=== PATIENT | female | born 1965 | race Caucasian/White ===

== ENCOUNTER → 2024-06-10 | Outpatient (CLI) | payer BC, SELFPAY ==
--- NOTE | 2024-06-10 | XR_ITS ---
Examination: PA lateral chest 2 views TECHNIQUE: Upright PA lateral chest 2 views Exam date and time: June 10, 2024 1216 hours INDICATIONS: Shortness of breath chronic FINDINGS: Normal heart size Mild hyperexpansion No pneumonia or pulmonary edema IMPRESSION: Mild hyperexpansion
[2024-06-10 13:14] LABS: Basophils # (Auto) 0.1 Thou/mm3 (0.0-0.2); Basophils % (Auto) 1 % (0-2.5); Eosinophils # (Auto) 0.3 Thou/mm3 (0.0-0.5); Eosinophils % (Auto) 4 % (0-10); Hematocrit 45.5 % (36.0-46.0); Hemoglobin 15.9 g/dL (12.0-16.0); Immature Granulocytes % (Auto) 1 % (0-0); Immature Granulocytes Auto 0.04 Thou/mm3 (0.00-0.00); Lymphocytes # (Auto) 2.9 Thou/mm3 (1.0-4.8); Lymphocytes % (Auto) 35 % (10-50); Mean Corpuscular HGB Conc 34.9 g/dl (31.0-37.0); Mean Corpuscular Hemoglobin 33.8 pg (25.0-35.0); Mean Corpuscular Volume 97 fL (80-100); Monocytes # (Auto) 0.6 Thou/mm3 (0.0-0.8); Monocytes % (Auto) 7 % (0-12); Neutrophils # (Auto) 4.4 Thou/mm3 (1.8-7.7); Neutrophils % (Auto) 53 % (37-80); Nucleated Red Blood Cell % 0 /100 WBC (0); Platelet Count 322 Thou/mm3 (140-440); RDW Standard Deviation 41.6 fL (36.4-46.3); Red Blood Count 4.71 Miln/mm3 (4.00-5.20); White Blood Count 8.3 Thou/mm3 (3.6-11.0)
[2024-06-10 13:28] LABS: Bacteria,Urine 1+; Bilirubin,Urine Negative (Negative); Blood,Urine Negative (Negative); Clarity,Urine Clear (Clear/Hazy); Color,Urine Lt-Yellow (Lt Yel-Yel); Glucose, Urine Negative (Negative); Ketones,Urine Negative (Negative); Leukocyte Esterase,Urine Positive (Negative); Nitrite,Urine Negative (Negative); Protein,Urine Negative (Neg - Trace); RBC,Urine 2 /hpf (0-3); Specific Gravity,Urine 1.009 (1.001-1.035); Squamous Epithelial Cell,Urine 1 /hpf (0-5); Urobilinogen,Urine Negative mg/dL (0.0-1.0); WBC,Urine 23 /hpf (0-5)
[2024-06-10 13:31] LABS: Collection Type, Urine Clean Catch
[2024-06-10 13:36] LABS: Vitamin D 25 Hydroxy Total 23.3 ng/mL (7.3-40.2)
[2024-06-10 13:44] LABS: Alanine Aminotransferase 20 U/L (10-49); Albumin, Serum 4.7 gm/dL (3.5-5.0); Albumin/Globulin Ratio 1.9 (1.2-2.2); Alkaline Phosphatase 108 U/L (46-116); Anion Gap 4 (7-16); BUN/Creatinine Ratio 16 Ratio (12-20); Bilirubin,Total 0.4 mg/dL (0.3-1.2); Blood Urea Nitrogen 13 mg/dL (9-23); Calcium 10.1 mg/dL (8.3-10.6); Calcium (Corrected) 10.1 mg/dL (8.5-10.1); Carbon Dioxide 28.2 mMol/L (20.0-31.0); Chloride 104 mMol/L (98-107); Cholesterol 216 mg/dL (132-200); Creatinine (Component) 0.8 mg/dL (0.6-1.3); Globulin 2.5 gm/dL (2.3-3.5); Glucose 115 mg/dL (74-106); HDL Cholesterol 54 mg/dL (40-60); LDL Cholesterol,Calculated 98 mg/dL (0-130); Osmolality,Calculated 273 (275-295); Potassium 4.3 mMol/L (3.4-5.1); Sodium 136 mMol/L (136-145); Thyroid Stimulating Hormone 1.98 uIU/mL (0.55-4.78); Total Protein 7.2 gm/dL (5.7-8.2); Triglycerides 319 mg/dL (30-150); eGFR > 60 See Note
[2024-06-10 13:51] LABS: Aspartate Amino Transferase < 8 U/L (0-34)
== END | disposition home or self-care (01) ==
LOC: CDIM 11:47 → COPL 12:42
PROVIDERS: PCP Family Medicine; Referring Provider Family Medicine; Visit Provider Radiology Diagnostic Radiology
DX: J98.4 Other disorders of lung (principal); Z00.00 Encounter for general adult medical examination without abnormal findings; Z13.0 Encounter for screening for diseases of the blood and blood-forming organs and certain disorders involving the immune mechanism; Z13.29 Encounter for screening for other suspected endocrine disorder; Z13.21 Encounter for screening for nutritional disorder; Z13.220 Encounter for screening for lipoid disorders; Z13.1 Encounter for screening for diabetes mellitus; Z83.3 Family history of diabetes mellitus
CPT/HCPCS: 36415; 71046; 80053; 80061; 81001; 82306; 84443; 85025; 87077; 87086; 87186

== ENCOUNTER → 2024-06-18 | Outpatient (CLI) | payer BC, SELFPAY ==
--- NOTE | 2024-06-18 07:15 | XR_ITS ---
Examination: Ultrasound abdominal aorta Exam date and time: June 18, 2024 0711 hours INDICATIONS: Smoking history 20 years TECHNIQUE AND FINDINGS: Multiple axial images of the abdominal aorta Transverse dimension proximal abdominal aorta 2.1 x 2.0 cm, mid aorta 1.5 x 1.5 cm, distal aorta 1.3 x 1.3 cm, right iliac artery 0.7 x 5.9 cm left iliac artery 0.7 x 0.7 cm IMPRESSION: Negative for abdominal aortic aneurysm
== END | disposition home or self-care (01) ==
LOC: CDIM 07:03
PROVIDERS: PCP Family Medicine; Referring Provider Family Medicine; Visit Provider Family Medicine
DX: Z87.891 Personal history of nicotine dependence (principal)
CPT/HCPCS: 76770

== ENCOUNTER → 2024-07-15 | Outpatient (CLI) | payer BC, SELFPAY ==
--- NOTE | 2024-07-15 14:44 | EKG_ITS ---
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
[2024-07-15 15:29] LABS: Basophils # (Auto) 0.1 Thou/mm3 (0.0-0.2); Basophils % (Auto) 1 % (0-2.5); Eosinophils # (Auto) 0.2 Thou/mm3 (0.0-0.5); Eosinophils % (Auto) 2 % (0-10); Hematocrit 45.7 % (36.0-46.0); Hemoglobin 15.5 g/dL (12.0-16.0); Immature Granulocytes % (Auto) 0 % (0-0); Immature Granulocytes Auto 0.05 Thou/mm3 (0.00-0.00); Lymphocytes # (Auto) 4.5 Thou/mm3 (1.0-4.8); Lymphocytes % (Auto) 35 % (10-50); Mean Corpuscular HGB Conc 33.9 g/dl (31.0-37.0); Mean Corpuscular Hemoglobin 33.1 pg (25.0-35.0); Mean Corpuscular Volume 98 fL (80-100); Monocytes # (Auto) 0.8 Thou/mm3 (0.0-0.8); Monocytes % (Auto) 6 % (0-12); Neutrophils # (Auto) 7.3 Thou/mm3 (1.8-7.7); Neutrophils % (Auto) 56 % (37-80); Nucleated Red Blood Cell % 0 /100 WBC (0); Platelet Count 369 Thou/mm3 (140-440); RDW Standard Deviation 42.1 fL (36.4-46.3); Red Blood Count 4.68 Miln/mm3 (4.00-5.20)
[2024-07-15 15:56] LABS: Alanine Aminotransferase 16 U/L (10-49); Albumin, Serum 5.1 gm/dL (3.5-5.0); Alkaline Phosphatase 91 U/L (46-116); Anion Gap 7 (7-16); Aspartate Amino Transferase 18 U/L (0-34); BUN/Creatinine Ratio 22 Ratio (12-20); Bilirubin,Total 0.3 mg/dL (0.3-1.2); Blood Urea Nitrogen 22 mg/dL (9-23); Carbon Dioxide 28.8 mMol/L (20.0-31.0); Chloride 102 mMol/L (98-107); Globulin 2.6 gm/dL (2.3-3.5); Glucose 110 mg/dL (74-106); Osmolality,Calculated 279 (275-295); Potassium 4.4 mMol/L (3.4-5.1); Sodium 138 mMol/L (136-145); Total Protein 7.7 gm/dL (5.7-8.2); eGFR > 60 See Note
== END | disposition home or self-care (01) ==
PROVIDERS: PCP Family Medicine; Referring Provider Orthopaedic Surgery; Visit Provider Orthopaedic Surgery
DX: R07.9 Chest pain, unspecified (principal); R00.2 Palpitations; Z00.00 Encounter for general adult medical examination without abnormal findings; Z13.29 Encounter for screening for other suspected endocrine disorder
CPT/HCPCS: 36415; 80053; 85025; 93005

== ENCOUNTER → 2024-08-13 | Outpatient (CLI) | payer BC, SELFPAY ==
--- NOTE | 2024-08-13 13:21 | XR_ITS ---
Examination: Knee, left , 3 views Technique: Knee AP, lateral, axial 3 views Date and time of exam: August 13, 2024 1331 hours INDICATIONS: Intermittent swelling and pain involving the knee 3 months. FINDINGS: No fracture or dislocation Small knee effusion Minimal osteoarthritis IMPRESSION: Minimal osteoarthritis
--- NOTE | 2024-08-13 13:21 | XR_ITS ---
Examination: Bilateral knees, standing AP single view Technique: Standing AP bilateral knees, standing AP single view Exam date and time: August 13, 2024 1331 hours INDICATIONS: Intermittent left knee swelling and pain 2 years FINDINGS: Moderate osteopenia Total right knee arthroplasty. Satisfactory alignment No loosening of the prosthetic components Mild to moderate narrowing medial joint space left knee No left knee fracture or dislocation IMPRESSION: Mild to moderate narrowing medial joint space left knee
== END | disposition home or self-care (01) ==
PROVIDERS: PCP Orthopaedic Surgery; Referring Provider Orthopaedic Surgery; Visit Provider Orthopaedic Surgery
DX: M17.12 Unilateral primary osteoarthritis, left knee (principal); M25.862 Other specified joint disorders, left knee; M25.861 Other specified joint disorders, right knee
CPT/HCPCS: 73560; 73562; 73564; 73565

== ENCOUNTER → 2024-09-11 | Outpatient (CLI) | payer BC, SELFPAY ==
[2024-09-11 13:23] LABS: Basophils # (Auto) 0.1 Thou/mm3 (0.0-0.2); Basophils % (Auto) 1 % (0-2.5); Eosinophils # (Auto) 0.3 Thou/mm3 (0.0-0.5); Eosinophils % (Auto) 3 % (0-10); Hematocrit 44.3 % (36.0-46.0); Hemoglobin 15.1 g/dL (12.0-16.0); Immature Granulocytes % (Auto) 0 % (0-0); Immature Granulocytes Auto 0.03 Thou/mm3 (0.00-0.00); Lymphocytes # (Auto) 2.9 Thou/mm3 (1.0-4.8); Lymphocytes % (Auto) 37 % (10-50); Mean Corpuscular HGB Conc 34.1 g/dl (31.0-37.0); Mean Corpuscular Hemoglobin 32.8 pg (25.0-35.0); Mean Corpuscular Volume 96 fL (80-100); Monocytes # (Auto) 0.5 Thou/mm3 (0.0-0.8); Monocytes % (Auto) 6 % (0-12); Neutrophils # (Auto) 4.2 Thou/mm3 (1.8-7.7); Neutrophils % (Auto) 53 % (37-80); Nucleated Red Blood Cell % 0 /100 WBC (0); Platelet Count 294 Thou/mm3 (140-440); RDW Standard Deviation 42.7 fL (36.4-46.3)
[2024-09-11 13:45] LABS: Anion Gap 5 (7-16); BUN/Creatinine Ratio 15 Ratio (12-20); Blood Urea Nitrogen 12 mg/dL (9-23); Calcium 9.3 mg/dL (8.3-10.6); Carbon Dioxide 30.2 mMol/L (20.0-31.0); Chloride 106 mMol/L (98-107); Creatinine (Component) 0.8 mg/dL (0.6-1.3); Glucose 137 mg/dL (74-106); Osmolality,Calculated 282 (275-295); Potassium 4.4 mMol/L (3.4-5.1); Sodium 141 mMol/L (136-145); eGFR > 60 See Note
== END | disposition home or self-care (01) ==
LOC: COPL 12:29
PROVIDERS: PCP Family Medicine; Referring Provider Surgery Plastic and Reconstructive Surgery; Visit Provider Surgery Plastic and Reconstructive Surgery
DX: Z01.818 Encounter for other preprocedural examination (principal); G56.22 Lesion of ulnar nerve, left upper limb
CPT/HCPCS: 36415; 80048; 85025

== ENCOUNTER → 2024-09-15 | Outpatient (BNVA) | payer BC, SELFPAY | END | disposition home or self-care (01) | PROVIDERS: PCP Family Medicine; Referring Provider Family Medicine; Visit Provider Urology | DX: Z09 Encounter for follow-up examination after completed treatment for conditions other than malignant neoplasm (principal); Z87.440 Personal history of urinary (tract) infections; E66.9 Obesity, unspecified; Z68.29 Body mass index [BMI] 29.0-29.9, adult | CPT/HCPCS: 81003; 99212; G0463 ==

== ENCOUNTER → 2024-10-12 | Outpatient (CLI) | payer BC, SELFPAY ==
[2024-10-12 17:45] LABS: Alanine Aminotransferase 12 U/L (10-49); Albumin, Serum 4.1 gm/dL (3.5-5.0); Albumin/Globulin Ratio 1.8 (1.2-2.2); Alkaline Phosphatase 89 U/L (46-116); Anion Gap 7 (7-16); Aspartate Amino Transferase 14 U/L (0-34); BUN/Creatinine Ratio 16 Ratio (12-20); Bilirubin,Total 0.3 mg/dL (0.3-1.2); Blood Urea Nitrogen 14 mg/dL (9-23); Calcium 9.2 mg/dL (8.3-10.6); Calcium (Corrected) 9.2 mg/dL (8.5-10.1); Carbon Dioxide 27.8 mMol/L (20.0-31.0); Chloride 106 mMol/L (98-107); Creatinine (Component) 0.9 mg/dL (0.6-1.3); Globulin 2.3 gm/dL (2.3-3.5); Glucose 106 mg/dL (74-106); Osmolality,Calculated 281 (275-295); Potassium 4.1 mMol/L (3.4-5.1); Sodium 141 mMol/L (136-145); Total Protein 6.4 gm/dL (5.7-8.2); eGFR > 60 See Note
== END | disposition home or self-care (01) ==
LOC: COPL 16:26
PROVIDERS: PCP Family Medicine; Referring Provider Family Medicine; Visit Provider Family Medicine
DX: Z00.00 Encounter for general adult medical examination without abnormal findings (principal)
CPT/HCPCS: 36415; 80053

== ENCOUNTER → 2024-10-13 | Outpatient (CLI) | payer BC, SELFPAY ==
--- NOTE | 2024-10-13 11:00 | XR_ITS ---
Examination: CT soft tissue neck, with intravenous contrast. CT soft tissue neck without intravenous contrast 2-D coronal reconstructions. 2-D sagittal reconstructions. Date and time of exam :October 13, 2024 1057 hours INDICATIONS: Patient states left neck lump 5 years. CTDI: vol (mGy):25.8 DLP: (mGycm):784 Technique: 1.25 mm axial sections of the neck of the obtained. Pre and post intravenous administration 50 cc Isovue-370 Coronal and sagittal reconstructions have been obtained. Intravenous contrast administered 50 cc Isovue-370. Low dose protocols were performed. One or more of the following dose reduction techniques were used; automated exposure control, adjustment of the mA and/or KV according to patient size, use of iterative reconstruction technique. Findings: Symmetrical nasopharynx oropharynx Carotid triangle lymphadenopathy, on the right side 8 mm on the left side 7 mm The larynx appears normal Suspicious for left retroclavicular lymph node, axial image 61, measuring 19 mm Normal epiglottis No prevertebral soft tissue prominence IMPRESSION: Recommend ultrasound soft tissue neck follow-up including in the retroclavicular region to assess the lymphadenopathy
== END | disposition home or self-care (01) ==
PROVIDERS: Referring Provider Family Medicine; Visit Provider Family Medicine
DX: R59.0 Localized enlarged lymph nodes (principal)
CPT/HCPCS: 70492; A4649; Q9967

== ENCOUNTER → 2024-12-28 | Outpatient (CLI) | payer BC, SELFPAY ==
--- NOTE | 2024-12-28 14:00 | XR_ITS ---
Examination: Ultrasound soft tissue left clavicle TECHNIQUE: Grayscale sonographic images soft tissue left clavicle Date and time: December 28, 2024 1405 hours INDICATIONS: Palpable lump anterior left clavicle beginning 2011, ultrasound soft tissue neck October 13, 2024 carotid triangle lymphadenopathy, suspicious for 19 mm left retroclavicular lymph node FINDINGS: Multiple small lymph nodes anterior to the left clavicle, the largest 16 x 9 mm IMPRESSION: Lymphadenopathy adjacent to the left clavicle, consider repeat CT soft tissue neck in 3 months
== END | disposition home or self-care (01) ==
PROVIDERS: PCP Family Medicine; Referring Provider Family Medicine; Visit Provider Family Medicine
DX: R59.0 Localized enlarged lymph nodes (principal)
CPT/HCPCS: 76536

== ENCOUNTER 2025-04-09 00:35 | Emergency (ER) | payer BC, SELFPAY ==
[2025-04-09] VITALS (9 sets, daily range): BP systolic 131–151; BP diastolic 99–107; PULSE 90–128; RESP 15–95; TEMP 37.1; O2SAT 96–100; BMI 28.9
--- NOTE | 2025-04-09 00:56 | EKG_ITS ---
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: : 1965 Requested By: Jose Roberto De León Order Number: [id number] Reading MD: Jose Roberto De León Measurements Intervals [place] Rate: 103 P: [place]: QRS: 262 QRSD: 97 T: 76 QT: 329 QTc: 433 Interpretive Statements ATRIAL FIBRILLATION WITH RAPID VENTRICULAR RESPONSE INCOMPLETE RIGHT BUNDLE BRANCH BLOCK [90+ ms QRS DURATION, TERMINAL R IN V1/V2, 40+ ms S IN I/aVL/V4/V5/V6] RIGHT VENTRICULAR HYPERTROPHY [SOME/ALL OF: PROMINENT R IN V1, LATE TRANSITION, RAD, TE, SSS] SEPTAL MYOCARDIAL INFARCTION , OF INDETERMINATE AGE [40+ ms Q WAVE IN V1/V2] Compared to ECG 07/15/2024 14:47:16 Atrial abnormality now present Right ventricular hypertrophy now present Myocardial infarct finding now present Sinus rhythm no longer present Indeterminate axis no longer present /store/S0/[id number]/ecg/[id number].pdf
--- NOTE | 2025-04-09 01:01 | XR_ITS ---
Examination: AP chest single view Technique: AP portable upright chest single view Date and time: April 09, 2025, 0114 hrs., Comparison June 10, 2024 Indications: Shortness of breath today, asthma attack Findings: Normal heart size No lobar pneumonia or pulmonary edema. Moderate osteopenia Impression: No pneumonia or pulmonary edema
[2025-04-09 01:19] LABS: Basophils # (Auto) 0.1 Thou/mm3 (0.0-0.2); Basophils % (Auto) 1 % (0-2.5); Eosinophils # (Auto) 0.3 Thou/mm3 (0.0-0.5); Eosinophils % (Auto) 2 % (0-10); Hematocrit 45.2 % (36.0-46.0); Hemoglobin 15.2 g/dL (12.0-16.0); Immature Granulocytes Auto 0.05 Thou/mm3 (0.00-0.00); Lymphocytes # (Auto) 4.5 Thou/mm3 (1.0-4.8); Lymphocytes % (Auto) 37 % (10-50); Mean Corpuscular HGB Conc 33.6 g/dl (31.0-37.0); Mean Corpuscular Hemoglobin 33.3 pg (25.0-35.0); Mean Corpuscular Volume 99 fL (80-100); Monocytes # (Auto) 0.8 Thou/mm3 (0.0-0.8); Monocytes % (Auto) 6 % (0-12); Neutrophils # (Auto) 6.4 Thou/mm3 (1.8-7.7); Neutrophils % (Auto) 53 % (37-80); Nucleated Red Blood Cell # 0.00 Thou/mm3 (0.00-0.00); Nucleated Red Blood Cell % 0 /100 WBC (0); Platelet Count 284 Thou/mm3 (140-440); RDW Standard Deviation 43.1 fL (36.4-46.3); Red Blood Count 4.56 Miln/mm3 (4.00-5.20); White Blood Count 12.0 Thou/mm3 (3.6-11.0)
[2025-04-09] MEDS: Magnesium Sulfate 2 GM Ivpb 2 GM/50 ML BAG IV (01:25)
[2025-04-09] MEDS: MethylPREDNISolone SOD SUCC 62.5 MG/ML 2ML VIAL 125 MG IV (01:25)
[2025-04-09] MEDS: SODIUM CHLORIDE 0.9% 500 ML 500 ML 999 ML IV (01:26)
[2025-04-09 01:40] LABS: B-Type Natriuretic Peptide < 20 pg/mL (0-100)
[2025-04-09 01:41] LABS: Alanine Aminotransferase 18 U/L (10-49); Albumin, Serum 4.4 gm/dL (3.4-4.8); Albumin/Globulin Ratio 2.2 (1.2-2.2); Alkaline Phosphatase 105 U/L (46-116); Anion Gap 7 (7-16); Aspartate Amino Transferase 17 U/L (0-34); BUN/Creatinine Ratio 11 Ratio (12-20); Bilirubin,Total < 0.2 mg/dL (0.3-1.2); Blood Urea Nitrogen 11 mg/dL (9-23); Calcium 9.7 mg/dL (8.3-10.6); Calcium (Corrected) 9.7 mg/dL (8.5-10.1); Carbon Dioxide 27.7 mMol/L (20.0-31.0); Chloride 108 mMol/L (98-107); Creatinine (Component) 1.0 mg/dL (0.6-1.3); Estimated Creatinine Clearance 59.9 mL/min (>60); Globulin 2.0 gm/dL (2.3-3.5); Glucose 120 mg/dL (74-106); Magnesium 1.9 mg/dL (1.6-2.6); Osmolality,Calculated 285 (275-295); Potassium 3.9 mMol/L (3.4-5.1); Sodium 143 mMol/L (136-145); Total Protein 6.4 gm/dL (5.7-8.2); Troponin I < 0.020 ng/mL (0.0-0.045); eGFR > 60 See Note
[2025-04-09 01:43] LABS: D-Dimer < 250 ng/mL (<600)
--- NOTE | 2025-04-09 01:46 | EDNOTE_ITS ---
ED Asthma RME/HPI General Chief Complaint: Shortness of Breath/Dyspnea Stated Complaint: SOB Time Seen by Provider: 04/09/25 00:56 Arrival date/time: 04/09/25 00:35 RME / HPI RME / HPI Narrative: DR. SORIANO MAIN ED EVALUATION: Patient with Hx advanced asthma on home nebulizer therapy presents with relatively sudden onset shortness of breath this evening of increasing intensity despite home nebulizer use. Patient found in moderate to severe respiratory distress by paramedics with O2 sats in the low to mid 80 percentile range. Administered serial nebulizer treatments en route with gradual improvement in O2 sats to low to mid 90 percentile. No LE pain swell no fever chills or productive cough. No chest pain but reported chest tightness?. PMH includes Asthma/COPD and Kidney Stones. SHx is noncontributory, but includes orthopedic history including the right knee. No allergies to medications reported. Social history includes cigarette smoking, but denies alcoholism or illicit drug abuse. Related Data Home Medications ?Medication ?Instructions ?Recorded ?Confirmed montelukast 10 mg tablet 10 mg PO HS #0 tabs 06/28/14 09/15/24 (Singulair) albuterol sulfate 0.63 mg/3 mL 0.63 mg inhalation BID PRN 03/26/19 09/15/24 solution for nebulization Shortness Of Breath fluticasone propionate 50 1 spray intranasal DAILY 02/1409/15/24 mcg/actuation nasal spray,suspension albuterol sulfate 90 mcg/actuation inh inhalation Q6HR PRN PRN 11/21/21 09/15/24 aerosol inhaler Shortness Of Breath Or [place] ing aspirin 81 mg tablet 81 mg PO QDAY 11/21/2109/15 atorvastatin 10 mg tablet 10 mg PO DAILY 11/21/2108/29 estradiol 1 mg tablet 2 mg PO DAILY 11/21/2109/15 fluticasone fur. 100 mcg-umeclid 1 inh inhalation [place] Y 11/21/21 09/15/24 62.5 mcg-vilant 25 mcg inhalat.powder (Trelegy Ellipta) oxycodone-acetaminophen 5 mg-325 1 tab PO BID PRN Pain 11/21/21 09/15/24 mg tablet estradiol 0.01% (0.1 mg/gram) 2 g vaginal DIRECTED 09/17/23 09/15/24 vaginal cream (Estrace) nitrofurantoin macrocrystal 100 mg 100 mg PO QDAY 08/3009/15/24 capsule Allergies Allergy/AdvReac Type Severity Reaction Status Date / Time No Known Allergies Allergy Verified 09/15/24 14:01 Review of Systems Review of Systems Systems Reviewed: All systems reviewed, normal except as documented Past Medical History Past Medical History CARDIAC: Positive Hypercholesterolemia RESPIRATORY: Positive Chronic Obstructive Pulmonary Disease (COPD), Asthma and Pneumonia GASTROINTESTINAL: Positive Gastroesophageal Reflux Disease (once in awhile) GENITOURINARY: Positive Genitourinary Disorders (self in out cath prn for urinary retention- once q3 days to prevent uti), Renal Disease (kidney stones 2018) and Kidney Stones (2019, currently has right kidney stone) REPRODUCTIVE: Positive Previous Pregnancies MUSCULOSKELETAL: Positive Musculoskeletal Disorders and Arthritis (right knee) PSYCHO/SOCIAL: Positive Anxiety OTHER HISTORY: Positive Hospitalization, Shingles, Falls (more than 6 mons ago) and Chicken Pox Family History FAMILY HISTORY: Positive Family Respiratory Disorders, Family Cardiac Disorders, Family Gastrointestinal Problems, Family Cancer and Family Surgery Surgical History SURGICAL: Positive Tonsillectomy and Hysterectomy Social History SMOKING STATUS: Current some day smoker ED Exam Narrative Physical exam: GEN. APPEARANCE: The patient is alert awake oriented X-3 in mild to moderate respiratory distress, lying down comfortably, does not look ill/toxic. Patient has good eye contact. Patient is cooperative. VITALS: All vitals were reviewed and the pulse ox is 96% on room air which is normal according to my interpretation. HEENT: Normocephalic, atraumatic. Pupils are equal and reactive. Oral mucosa is moist. Patent Nares NECK: Supple, nontender, no thyromegaly, no meningismus, no JVD, no step offs CHEST: Symmetrical, atraumatic, and with equal expansion , Nontender on palpati on no deformity and no crepitus. CARDIOVASCULAR: Heart regular rhythm no murmur or gallop rub or extra beats. LUNGS: Mild to moderate respiratory distress, utilizing accessory muscles. Diffusely scattered harsh wheezing noted. No rales. ABDOMEN: Soft, flat, nontender to palpation, no guarding or rebound tenderness. There are no abnormal masses palpated. Active and normal bowel sounds. EXTREMITIES: Nontender. No edema. No cyanosis. Patient is able to move all 4 extremities well, with full ROM and good CSM. SKIN: Warm and dry, no jaundice or rashes noted. MUSCULOSKELETAL: No lubar or midline bony tenderness. There is no CVA tenderness. No paraspinal muscle spasm or tenderness. NEURO: Patient is CASTILLO x 4, Cranial nerves II through XII grossly intact. There is no focal neurologic deficits noted. GCS is 15, PNS and [employer] appear grossly intact. PSYCHIATRIC: Patient is in normal mood and affect, cooperative, no SI or HI or hallucinations. Course Course Course Narrative: CXR was ordered for determining the etiology of shortness of breath. 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 Care 04/09/25 00:57 Active Continuous Pulse Oximetry NOW Care 04/09/25 00:56 Completed EKG (ED ONLY) *Do not use* NOW Care 04/09/25 00:57 Completed EKG (ED Only) Stat Exams 04/09/25 00:56 Draft XR chest 1V portable Stat Exams 04/09/25 01:01 Taken B-Type Natriuretic Peptide Stat Lab 04/09/25 01:12 Completed CBC Stat Lab 04/09/25 01:12 Completed Comprehensive Metabolic Panel Stat Lab 04/09/25 01:12 Completed D-Dimer Stat Lab 04/09/25 01:12 Completed Magnesium Stat Lab 04/09/25 01:12 Completed Troponin I Stat Lab 04/09/25 01:12 Completed Urinalysis, C/S if Indicated Stat Lab 04/09/25 01:03 Ordered ALBUTEROL RT 0.5ml [Proventil Rt 0.5ml] Med 04/09/25 00:56 Active 5 mg INH Q30M PRN Ipratropium [place] Rt Penny [Atrovent Rt Penny] Med 04/09/25 00:56 Pending 0.5 mg INH X1 ONE Ipratropium [place] Rt Penny [Atrovent Rt Penny] Med 04/09/25 00:56 Discontinued DOSE mg INH X1 ONE Magnesium Sulfate 2 GM Ivpb [Magnesium Sulfate Ivpb] Med 04/09/25 01:05 Active 2 gm in 50 ml IV X1 MethylPREDNISolone.* [SoluMEDROL Inj] Med 04/09/25 01:01 Discontinued 125 mg IV X1 ONE Sodium Chloride 0.9% 500 ml [Ns] 500 ml Med 04/09/25 00:56 Discontinued IV 999 mls/hr Sodium Chloride Rt Penny 0.9% [NS Rt Penny 0.9%] Med 04/09/25 00:56 Active 3 ml INH PRN PRN BiPAP / CPAP NOW RT 04/09/25 00:56 Active Oxygen Delivery NOW RT 04/09/25 00:56 Active Vital Signs Vital signs: Vital Signs Temperature 98.8 F 04/09/25 00:47 Pulse Rate 128 H 04/09/25 00:47 Respiratory Rate 20 04/09/25 00:47 Blood Pressure 151/107 H 04/09/25 00:47 Pulse Oximetry (%) 96 04/09/25 00:47 Oxygen Delivery Method Room Air 04/09/25 00:47 Asthma MDM Narrative MDM Narrative:: Scribe Attestation: Faustina Mckeon am scribing for and in the presence of Dr. Soriano. Provider Notation: Although this document has been carefully reviewed, there may still be some phonetic and other typographical errors. These errors are purely grammatical due to imperfections in the software program and should not be construed in any way to compromise the substance of the patient's medical care during this visit. Patient with Hx advanced asthma on home nebulizer therapy presents with relatively sudden onset shortness of breath this evening of increasing intensity despite home nebulizer use. Patient found in moderate to severe respiratory distress by paramedics with O2 sats in the low to mid 80 percentile range. Please see PE findings. Lab markers demonstrated marginally elevated white blood cell count of 12, with normal hemoglobin, no left shift or anemia. Serum chemistries demonstrate glucose mildly elevated at 120. UA equivocal for infection, though appears to be contaminated. CXR shows hyperexpansion of lung [place] without infiltrate. Patient placed on professional housing consultant, received serial nebulizer treatment in conjunction with IV steroids and magnesium infusion with slow gradual improvement. Imperical ABX administered. Hospitalist consulted to consider admission for COPD exacerbation. Patient data External records reviewed:: [facility] previous records (No recent ED records available for review.) and EMS form Clinical information provided by:: patient and EMS Social determinants that could affect healthcare access:: none Patient has the following chronic illnesses:: Hypercholesterolemia, Chronic Obstructive Pulmonary Disease (COPD), Asthma, Gastroesophageal Reflux Disease, Renal Disease, Kidney Stones, Arthritis, Anxiety How is presenting disease/condition affected by chronic disease/condition?: exacerbated by Evaluation data The following diagnostics were reviewed and interpreted by me:: lab results, radiology exam(s) and EKG tracing(s) Lab and/or radiology exams considered but not ordered:: None Interpretation Summary: RADIOLOGY Chest X-Ray: Pending official radiology report. Medications / Prescriptions Medications or Prescriptions considered but not ordered:: None Medication administrations:: Medication Administration History Albuterol (Albuterol Rt 2.5 Mg/0.5 Ml Nebu) 5 mg INH Q30M PRN PRN Reason: SHORTNESS OF BREATH Magnesium Sulfate (Magnesium Sulfate Ivpb) 2 gm in 50 mls @ 25 mls/hr IV X1 ONE Stop: 04/09/25 03:04 Last Admin: 04/09/25 01:25 Dose: 25 mls/hr Documented By: [email or web address] Ipratropium [place] (Ipratropium Rt 0.5 Mg/ 2.5 Ml Nebu) 0.5 mg INH X1 ONE Stop: 04/09/25 00:57 Sodium Chloride (Sodium Chloride Rt Penny 0.9% 3 Ml Nebu) 3 ml INH PRN PRN PRN Reason: SOLN Stop: 05/09/25 00:55 Discontinued Medications Sodium Chloride (Ns) 500 mls @ 999 mls/hr IV .Q31M ONE Stop: 04/09/25 01:26 Last Admin: 04/09/25 01:26 Dose: 999 mls/hr Documented By: [email or web address] Ipratropium [place] (Ipratropium Rt 0.5 Mg/ 2.5 Ml Nebu) mg INH X1 ONE Stop: 04/09/25 00:57 Methylprednisolone Sodium Succinate (Methylprednisolone Sod Succ 62.5 Mg/Ml 2ml Vial) 125 mg IV X1 ONE Stop: 04/09/25 01:02 Last Admin: 04/09/25 01:25 Dose: 125 mg Documented By: ERKHA Consultations Consultation(s) initiated? (list below): Yes Consultation #1 (Physician, Specialty, Details): Hospitalist made aware of the patient?s HPI, PMHx, lab and/or radiology results. Treatment plan was discussed. Will admit for further evaluation and management. Accepts patient for admission. Time: 03:21 Diagnosis Differential diagnosis asthma: Acute exacerbation, Status asthmaticus, Acute asthmatic bronchitis, PE, Pneumonia, COPD exacerbation, Pulmonary edema systolic, Pulmonary edema dystolic, ARDS and Pneumothorax Most likely diagnosis given after review of the tests above:: COPD exacerbation, Admission Indicated Admission indicated?: indicated Explain why admission is indicated or not indicated:: COPD exacerbation Admission Request Was there a request for admission?: Yes Admission Attestation Admission request attestation: Discussed case with [] from Hospitalist service regarding admission. Discussed patients ED course, exam findings, labs, and radiology results. The Hospitalist [agrees,declines] to accept the patient for admission. Disposition Plan Disposition Plan: Admit Critical Care Time Critical Care Time Critical Care Time: Yes Total Critical Care Time (min.): 40 Attestation: The high probability of sudden, clinically significant deterioration in the patient?s condition required the highest level of my preparedness to intervene urgently. The services I provided to this patient were to treat and/or prevent clinically significant deterioration. Services included the following: chart data review, reviewing nursing notes and/or old charts, documentation time, network systems consultant collab oration regarding findings and treatment options, medication orders and management, direct patient care, vital sign assessments and ordering, interpreting and reviewing diagnostic studies and lab tests. Aggregate critical care time includes only time during which I was engaged in work directly related to the patient?s care, as described above, whether at bedside or elsewhere in the Emergency Department. It did not include time spent performing other reported procedures or the services of residents, students, nurses or physician assistants. Discharge Plan Plan Patient Disposition: Admit Acute Care w/in Hospital Prescriptions/Referrals Prescriptions/Med Rec: No Action estradiol [Estrace] 0.01 % (0.1 mg/gram) cream 2 g vaginal DIRECTED Patient Comments: twice a week nitrofurantoin macrocrystal 100 mg capsule 100 mg PO QDAY Rx Instructions: must administer with a meal/food montelukast [Singulair] 10 MG tablet 10 mg PO HS Qty: 0 albuterol sulfate 0.63 mg/3 mL Solution For Nebulization 0.63 mg INHALATION BID PRN (Reason: Shortness Of Breath) fluticasone propionate 50 mcg/actuation spray,suspension 1 spray INTRANASAL DAILY Patient Comments: SHAKE LQ AND U 1 SPR IEN BID Rx Instructions: 1 spray each nose albuterol sulfate 90 mcg/actuation HFA aerosol inhaler INHALATION N2ENDGL PRN (Reason: Shortness Of Breath Or Wheezing) Patient Comments: INHALE 2 PUFFS BY MOUTH EVERY 6 HOURS NEEDED Trelegy Ellipta 100-62.5-25 mcg blister with device 1 inh INHALATION DAILY Patient Comments: INHALE 1 PUFF BY MOUTH DAILY aspirin 81 mg Tablet 81 mg PO QDAY atorvastatin 10 mg tablet 10 mg PO DAILY Patient Comments: TAKE ONE TABLET BY MOUTH EVERY DAY FOR CHOLESTEROL estradiol 1 mg tablet 2 mg PO DAILY oxycodone-acetaminophen 5-325 mg tablet 1 tab PO BID PRN (Reason: Pain) Rx Instructions: Hx right total knee replacement on 05/25/21 Referrals: No Primary/Family,Physician [Primary Care Provider] - In 1 week Problem List Clinical Impression: COPD exacerbation Patient/Caregiver Discharge Instructions Print Language: Hebrew Stand Alone Forms: Negin Award Info., Patient Portal Info Letter
[2025-04-09] MEDS: ALBUTEROL RT 2.5 MG/0.5 ML NEBU 5 MG INH (01:52)
[2025-04-09] MEDS: SODIUM CHLORIDE RT SOL 0.9% 3 ML NEBU INH (01:52)
[2025-04-09] MEDS: ALBUTEROL RT 2.5 MG/0.5 ML NEBU 10 MG (02:16)
[2025-04-09] MEDS: IPRATROPIUM RT 0.5 MG/ 2.5 ML NEBU 1 MG INH (02:18)
[2025-04-09 02:29] LABS: Collection Type, Urine Clean Catch
[2025-04-09 02:50] LABS: Bacteria,Urine 3+; Bilirubin,Urine Negative (Negative); Blood,Urine Trace (Negative); Clarity,Urine Clear (Clear/Hazy); Color,Urine Lt-Yellow (Lt Yel-Yel); Glucose, Urine Negative (Negative); Hyaline Casts,Urine < 1 /hpf (0-1); Ketones,Urine Negative (Negative); Leukocyte Esterase,Urine Negative (Negative); Nitrite,Urine Negative (Negative); PH,Urine 6.5 (5.0-7.0); Protein,Urine 1+ (Neg - Trace); RBC,Urine 9 /hpf (0-3); Specific Gravity,Urine 1.019 (1.001-1.035); Squamous Epithelial Cell,Urine 8 /hpf (0-5); Urobilinogen,Urine Negative mg/dL (0.0-1.0); WBC,Urine 1 /hpf (0-5)
[2025-04-09 02:52] LABS: Culture Indicated,Urine Yes
[2025-04-09] MEDS: cefTRIAXone/D5w 1gm IV premix 1 GM/50 ML BAG IV (05:09)
== END 2025-04-09 05:16 | disposition home or self-care (01) ==
PROVIDERS: Emergency Provider Emergency Medicine
DX: J44.1 Chronic obstructive pulmonary disease with (acute) exacerbation (principal); I48.91 Unspecified atrial fibrillation; I45.10 Unspecified right bundle-branch block; E78.00 Pure hypercholesterolemia, unspecified; D72.829 Elevated white blood cell count, unspecified; F17.210 Nicotine dependence, cigarettes, uncomplicated
CPT/HCPCS: 36415; 71045; 80053; 81001; 83735; 83880; 84484; 85025; 85379; 87086; 87400; 87811; 93005; 94640; 94644; 99284; J0696; J2919; J3475; J7999; J7609

== ENCOUNTER → 2025-05-03 | Outpatient (BNVA) | payer BC, SELFPAY | END | disposition home or self-care (01) | PROVIDERS: PCP Family Medicine; Referring Provider Family Medicine; Visit Provider Urology | DX: N39.0 Urinary tract infection, site not specified (principal); N35.92 Unspecified urethral stricture, female; G89.4 Chronic pain syndrome; R45.7 State of emotional shock and stress, unspecified; Z87.442 Personal history of urinary calculi; E78.00 Pure hypercholesterolemia, unspecified; J44.9 Chronic obstructive pulmonary disease, unspecified; F17.210 Nicotine dependence, cigarettes, uncomplicated; Z71.6 Tobacco abuse counseling | CPT/HCPCS: 81003; 99212; G0463 ==

== ENCOUNTER 2025-06-06 00:07 | Inpatient (IN) | payer BC, SELFPAY ==
[2025-06-06] VITALS (20 sets, daily range): BP systolic 124–152; BP diastolic 84–104; PULSE 90–128; RESP 16–95; TEMP 36.1–36.7; O2SAT 92–99; BMI 23.0; BMI 27.6
--- NOTE | 2025-06-06 00:31 | XR_ITS ---
EXAMINATION: AP chest single view TECHNIQUE: AP portable upright chest single view Date and time: June 06, 2025, 0051 hours INDICATIONS: Shortness of breath wheezing difficulty breathing beginning 3 days ago FINDINGS: Normal heart size Lungs are clear. The Jamey structures are intact IMPRESSION: No active disease
--- NOTE | 2025-06-06 00:32 | EKG_ITS ---
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: : 1965 Requested By: Jose Roberto De León Order Number: [id number] Reading MD: Jose Roberto De León Measurements Intervals [place] Rate: 106 P: 56 [place]: 148 QRS: -73 QRSD: 90 T: 68 QT: 324 QTc: 430 Interpretive Statements SINUS TACHYCARDIA POSSIBLE LEFT ATRIAL ENLARGEMENT [-0.1mV P-WAVE IN V1/V2] INDETERMINATE AXIS POSSIBLE RIGHT VENTRICULAR CONDUCTION DELAY [RSR (QR) IN V1/V2] LEFT ANTERIOR FASCICULAR BLOCK [QRS AXIS <= -45, QR IN I, RS IN II] Compared to ECG 04/09/2025 01:12:42 Indeterminate axis now present Left anterior fascicular block now present Atrial fibrillation no longer present Incomplete right bundle-branch block no longer present Right ventricular hypertrophy no longer present Myocardial infarct finding no longer present /store/S0/[id number]/[id number]
[2025-06-06 01:14] LABS: Basophils # (Auto) 0.1 Thou/mm3 (0.0-0.2); Basophils % (Auto) 1 % (0-2.5); Eosinophils # (Auto) 0.3 Thou/mm3 (0.0-0.5); Eosinophils % (Auto) 3 % (0-10); Hematocrit 41.5 % (36.0-46.0); Hemoglobin 14.3 g/dL (12.0-16.0); Immature Granulocytes Auto 0.05 Thou/mm3 (0.00-0.00); Lymphocytes # (Auto) 2.5 Thou/mm3 (1.0-4.8); Lymphocytes % (Auto) 24 % (10-50); Mean Corpuscular HGB Conc 34.5 g/dl (31.0-37.0); Mean Corpuscular Hemoglobin 33.3 pg (25.0-35.0); Mean Corpuscular Volume 97 fL (80-100); Monocytes # (Auto) 0.7 Thou/mm3 (0.0-0.8); Monocytes % (Auto) 7 % (0-12); Neutrophils # (Auto) 6.9 Thou/mm3 (1.8-7.7); Neutrophils % (Auto) 66 % (37-80); Nucleated Red Blood Cell # 0.00 Thou/mm3 (0.00-0.00); Nucleated Red Blood Cell % 0 /100 WBC (0); Platelet Count 277 Thou/mm3 (140-440); RDW Standard Deviation 42.3 fL (36.4-46.3); Red Blood Count 4.29 Miln/mm3 (4.00-5.20); White Blood Count 10.4 Thou/mm3 (3.6-11.0)
--- NOTE | 2025-06-06 01:26 | PRELIM_ITS ---
Radiograph of the chest (single AP Portable Upright view). June 06, 2025 0045 hours Clinical history: SHORTNESS OF BREATH No prior study is available for comparison. Findings: The heart, mediastinum and pulmonary gayla are unremarkable. The lungs are clear. There is no pleural effusion. The bony thorax is unremarkable. Impression: No focal consolidation or pleural effusion. Report Electronically Signed By: Danny Mtz 06/06/2025 1:26:11 AM [EST]
[2025-06-06 01:34] LABS: B-Type Natriuretic Peptide < 20 pg/mL (0-100)
[2025-06-06 02:04] LABS: Alanine Aminotransferase 15 U/L (10-49); Albumin, Serum 4.3 gm/dL (3.4-4.8); Albumin/Globulin Ratio 2.3 (1.2-2.2); Alkaline Phosphatase 97 U/L (46-116); Anion Gap 8 (7-16); Aspartate Amino Transferase 18 U/L (0-34); BUN/Creatinine Ratio 12 Ratio (12-20); Bilirubin,Total 0.2 mg/dL (0.3-1.2); Blood Urea Nitrogen 11 mg/dL (9-23); Calcium 9.0 mg/dL (8.3-10.6); Calcium (Corrected) 9.0 mg/dL (8.5-10.1); Carbon Dioxide 26.0 mMol/L (20.0-31.0); Chloride 107 mMol/L (98-107); Creatinine (Component) 0.9 mg/dL (0.6-1.3); Estimated Creatinine Clearance 55.0 mL/min (>60); Globulin 1.9 gm/dL (2.3-3.5); Glucose 197 mg/dL (74-106); Osmolality,Calculated 285 (275-295); Potassium 3.7 mMol/L (3.4-5.1); Sodium 141 mMol/L (136-145); Total Protein 6.2 gm/dL (5.7-8.2); Troponin I < 0.020 ng/mL (0.0-0.045); eGFR > 60 See Note
--- NOTE | 2025-06-06 02:27 | PD.EDSOB ---
ED SOB =RME/HPI General Chief Complaint: Shortness of Breath/Dyspnea Stated Complaint: SOB Time Seen by Provider: 06/06/25 01:59 Arrival date/time: 06/06/25 00:07 RME / HPI RME / HPI Narrative: DR. SORIANO MAIN ED EVALUATION: Patient presenting with progressive shortness of breath for several days duration despite using her MDI and nebulizer at home on multiple occasions. Notably hypoxic in the field with O2 saturations in the mid 80% range. Patient was placed on O2 via nasal cannula and administered nebulizer treatment with marginal improvement. Patient notes ongoing cough and difficulty expectorating. PMH: Hypercholesterolemia, Chronic Obstructive Pulmonary Disease, Asthma, Gastroesophageal Reflux Disease, Kidney Stones, Arthritis, Anxiety PSH: Hysterectomy, Tonsillectomy, Appendectomy, Tubal Ligation Allergies: NKDA Social: Reports occasional rare use of Tobacco, rare alcohol consumption, no illicit drug abuse Related Data Home Medications ?Medication ?Instructions ?Recorded ?Confirmed montelukast 10 mg tablet 10 mg PO HS #0 tabs 06/28/14 05/03/25 (Singulair) albuterol sulfate 0.63 mg/3 mL 0.63 mg inhalation BID PRN 03/26/19 05/03/25 solution for nebulization Shortness Of Breath fluticasone propionate 50 1 spray intranasal DAILY 12/03/19 05/03/25 mcg/actuation nasal spray,suspension albuterol sulfate 90 mcg/actuation inh inhalation [id number] PRN 11/21/21 05/03/25 aerosol inhaler Shortness Of Breath Or Wheezing aspirin 81 mg tablet 81 mg PO QDAY 11/21/21 05/03/25 atorvastatin 10 mg tablet 10 mg PO DAILY 11/21/21 05/03/25 estradiol 1 mg tablet 2 mg PO DAILY 11/21/21 05/03/25 fluticasone fur. 100 mcg-umeclid 1 inh inhalation DAILY 11/21/21 05/03/25 62.5 mcg-vilant 25 mcg inhalat.powder (Trelegy Ellipta) oxycodone-acetaminophen 5 mg-325 1 tab PO BID PRN Pain 04/26/22 10/06/25 mg tablet estradiol 0.01% (0.1 mg/gram) 2 g vaginal DIRECTED 09/17/23 05/03/25 vaginal cream (Estrace) Previous Rx's ?Medication ?Instructions ?Recorded ipratropium 0.5 mg-albuterol 3 mg 3 ml inhalation QID PRN shortness 04/09/25 (2.5 mg base)/3 mL nebulization of breath #180 mL soln Allergies Allergy/AdvReac Type Severity Reaction Status Date / Time No Known Allergies Allergy Verified 05/03/25 09:11 Review of Systems Review of Systems Systems Reviewed: All systems reviewed, normal except as documented Past Medical History Past Medical History CARDIAC: Positive Hypercholesterolemia RESPIRATORY: Positive Chronic Obstructive Pulmonary Disease (COPD), Asthma and Pneumonia GASTROINTESTINAL: Positive Gastroesophageal Reflux Disease (once in awhile) GENITOURINARY: Positive Kidney Stones (2019, currently has right kidney stone) REPRODUCTIVE: Positive Previous Pregnancies MUSCULOSKELETAL: Positive Arthritis (right knee) PSYCHO/SOCIAL: Positive Anxiety OTHER HISTORY: Positive Hospitalization, Shingles, Falls (more than 6 mons ago) and Chicken Pox Family History FAMILY HISTORY: Positive Family Respiratory Disorders, Family Cardiac Disorders, Family Gastrointestinal Problems, Family Cancer and Family Surgery Surgical History SURGICAL: Positive Tonsillectomy and Hysterectomy Social History SMOKING STATUS: Current some day smoker ED Exam Narrative Physical exam: GEN. APPEARANCE: The patient is alert awake oriented X-3 mild respiratory distress with occasional audible wheeze. Patient has good eye contact. Patient is cooperative. VITALS: All vitals were reviewed and the pulse ox is 94% on 6L/min via NC, which is low according to my interpretation HEENT: Normocephalic, atraumatic and nontender. Pupils are equal and reactive. Oral mucosa is moist. NECK: Supple, nontender, no meningismus, no JVD. There is no thyromegaly and no lymphadenopathy. CHEST: Nontender on palpation no deformity and no crepitus. CARDIOVASCULAR: Heart regular rhythm, no murmur or gallop rub or extra beats. LUNGS: Diminished breath sounds, scattered wheezing noted with symmetrical chest rise. No intercostal subcostal retraction. No rales and no rhonchi. ABDOMEN: Soft, flat, nontender to palpation, no guarding or rebound tenderness. There are no abnormal masses palpated. No pulsatile masses or bruits. Active and normal bowel sounds. EXTREMITIES: Normal inspection and palpation. No edema. No cyanosis. Patient is able to move all 4 extremities well SKIN: Warm and dry, no rashes noted. MUSCULOSKELETAL: No lumbar or midline bony tenderness. There is no CVA tenderness. No paraspinal muscle spasm or tenderness. NEURO: Cranial nerves II through XII grossly intact. There are no focal neurologic deficits noted. GCS is 15 PSYCHIATRIC: Patient is in normal mood and affect, cooperative. LYMPHATICS: No major lymphadenopathy noted. Course Quality Measures none Orders Category Date Time Status Admit to Inpatient Status Routine Admission 06/06/25 05:14 Active Patient Condition Routine Admission 06/06/25 05:14 Ordered Activity as Tolerated Routine Care 06/06/25 05:15 Ordered Bedside COVID-19 Antigen Test NOW Care 06/06/25 04:31 Active Continuous Pulse Oximetry NOW Care 06/06/25 05:14 Completed EKG (ED ONLY) *Do not use* NOW Care 06/06/25 00:32 Completed Incentive Spirometry Treatment .q2h w/a Care 06/06/25 05:14 Active Notify provider NEEDED Care 06/06/25 05:14 Active Diet Regular Diet 06/06/25 Breakfast Active EKG (ED Only) Stat Exams 06/06/25 00:32 Draft XR chest 1V portable Stat Exams 06/06/25 00:31 Taken A1C [Glycohemoglobin w (eAG)] AM DRAW Lab 06/07/25 05:00 Ordered ABG [Arterial Blood Gas] Stat Lab 06/06/25 05:44 Ordered BNP [B-Type Natriuretic Peptide] Stat Lab 06/06/25 00:59 Completed CBC AM DRAW Lab 06/07/25 05:00 Ordered CBC AM DRAW Lab 06/08/25 05:00 Ordered CBC AM DRAW Lab 06/09/25 05:00 Ordered CBC AM DRAW Lab 06/10/25 05:00 Ordered CBC AM DRAW Lab 06/11/25 05:00 Ordered CBC AM DRAW Lab 06/12/25 05:00 Ordered CBC AM DRAW Lab 06/13/25 05:00 Ordered CBC AM DRAW Lab 06/14/25 05:00 Ordered CBC AM DRAW Lab 06/15/25 05:00 Ordered CBC AM DRAW Lab 06/16/25 05:00 Ordered CBC Stat Lab 06/06/25 00:59 Completed CMP [Comprehensive Metabolic Panel] AM DRAW Lab 06/07/25 05:00 Ordered CMP [Comprehensive Metabolic Panel] AM DRAW Lab 06/08/25 05:00 Ordered CMP [Comprehensive Metabolic Panel] AM DRAW Lab 06/09/25 05:00 Ordered CMP [Comprehensive Metabolic Panel] AM DRAW Lab 06/10/25 05:00 Ordered CMP [Comprehensive Metabolic Panel] AM DRAW Lab 06/11/25 05:00 Ordered CMP [Comprehensive Metabolic Panel] AM DRAW Lab 06/12/25 05:00 Ordered CMP [Comprehensive Metabolic Panel] AM DRAW Lab 06/13/25 05:00 Ordered CMP [Comprehensive Metabolic Panel] AM DRAW Lab 06/14/25 05:00 Ordered CMP [Comprehensive Metabolic Panel] AM DRAW Lab 06/15/25 05:00 Ordered CMP [Comprehensive Metabolic Panel] AM DRAW Lab 06/16/25 05:00 Ordered CMP [Comprehensive Metabolic Panel] Stat Lab 06/06/25 00:59 Completed Cocci Serology IgM with reflex to IgG [Cocci Serology, Lab 06/06/25 00:59 Received Unk History] Stat D-Dimer Stat Lab 06/06/25 00:59 Completed Influenza A & B Rapid Panel Stat Lab 06/06/25 04:31 Ordered Mag [Magnesium] AM DRAW Lab 06/07/25 05:00 Ordered Mag [Magnesium] AM DRAW Lab 06/08/25 05:00 Ordered Mag [Magnesium] AM DRAW Lab 06/09/25 05:00 Ordered Mag [Magnesium] AM DRAW Lab 06/10/25 05:00 Ordered Mag [Magnesium] AM DRAW Lab 06/11/25 05:00 Ordered Mag [Magnesium] AM DRAW Lab 06/12/25 05:00 Ordered Mag [Magnesium] AM DRAW Lab 06/13/25 05:00 Ordered Mag [Magnesium] AM DRAW Lab 06/14/25 05:00 Ordered Mag [Magnesium] AM DRAW Lab 06/15/25 05:00 Ordered Mag [Magnesium] AM DRAW Lab 06/16/25 05:00 Ordered Phosphorous AM DRAW Lab 06/07/25 05:00 Ordered Phosphorous AM DRAW Lab 06/08/25 05:00 Ordered Phosphorous AM DRAW Lab 06/09/25 05:00 Ordered Phosphorous AM DRAW Lab 06/10/25 05:00 Ordered Phosphorous AM DRAW Lab 06/11/25 05:00 Ordered Phosphorous AM DRAW Lab 06/12/25 05:00 Ordered Phosphorous AM DRAW Lab 06/13/25 05:00 Ordered Phosphorous AM DRAW Lab 06/14/25 05:00 Ordered Phosphorous AM DRAW Lab 06/15/25 05:00 Ordered Phosphorous AM DRAW Lab 06/16/25 05:00 Ordered Sputum Culture and Gram Stain Routine Lab 06/06/25 05:21 Ordered Troponin I Stat Lab 06/06/25 00:59 Completed ALBUTEROL RT 3ml [Proventil Rt 3ml] Med 06/06/25 02:00 Discontinued 10 mg HHN X1 ONE Acetaminophen Tab [Tylenol Tab] Med 06/06/25 05:19 Active 650 mg PO Q6H PRN Albuterol/Ipratr Rt Penny [Duoneb Rt Penny] Med 06/06/25 07:00 Active 3 ml INH Q4HRRT Azithromycin Inj [Zithromax Inj] 250 mg Med 06/07/25 05:24 Pending Sterile Water 2.5 ml Sodium Chloride 0.9% 250 ml [Ns] 250 ml IV QDAY Azithromycin Inj [Zithromax Inj] 500 mg Med 06/06/25 05:25 Active Sodium Chloride 0.9% 250 ml [Ns] 250 ml IV X1 Dexamethasone Inj [Decadron Inj] 10 mg Med 06/06/25 02:00 Discontinued Sodium Chloride 0.9% [Ns] 100 ml IV X1 Docusate Sod [Colace] Med 06/06/25 09:00 Active 100 mg PO QDAY Famotidine Inj [Pepcid Inj] Med 06/06/25 09:00 Active 20 mg IVP Q12HR HYDROcodone*/APAP 5/325 [[place] 5/325] Med 06/06/25 05:19 Active 1 tab PO Q4HR PRN Heparin Inj Med 06/06/25 09:00 Active 5,000 unit SC Q12HR Ipratropium [place] Rt Penny [Atrovent Rt Penny] Med 06/06/25 02:01 Discontinued 0.5 mg HHN X1 ONE MethylPREDNISolone. [SoluMEDROL Inj] Med 06/06/25 09:00 Active 40 mg IVP QDAY Ondansetron Inj [Zofran Inj] Med 06/06/25 05:19 Active 4 mg IVP Q6H PRN Ringers Lactated 1000 ml [Lactated Ringers] 1,000 ml Med 06/06/25 05:15 Active IV 75 mls/hr Sodium Chloride Rt Penny 10% [NS Rt Penny 10%] Med 06/06/25 05:19 Discontinued 5 ml INH X1 ONE cefTRIAXone/D5w 1gm IV premix [Rocephin/D5w 1gm IV Med 06/06/25 05:26 Pending premix] 1 gm in 50 ml IV QDAY cefTRIAXone/D5w 1gm IV premix [Rocephin/D5w 1gm IV Med 06/06/25 05:45 Active premix] 1 gm in 50 ml IV X1 Code Status Routine Oth 06/06/25 05:14 Ordered BiPAP / CPAP NEEDED RT 06/06/25 05:22 Active Oxygen Delivery DAILY RT 06/06/25 05:16 Active Oxygen Delivery PRN RT 06/06/25 05:14 Active Sputum Induction PRN RT 06/06/25 05:30 Ordered Vital Signs Vital signs: Vital Signs Temperature 98.1 F 06/06/25 00:20 Pulse Rate 125 H 06/06/25 00:20 Respiratory Rate 18 06/06/25 00:20 Blood Pressure 152/97 H 06/06/25 00:20 Pulse Oximetry (%) 94 L 06/06/25 00:20 Oxygen Delivery Method Nasal Cannula 06/06/25 00:20 Oxygen Flow Rate 6 06/06/25 00:20 Shortness of Breath / Dyspnea MDM Narrative MDM Narrative:: Scribe Attestation: Faustina Mckeon am scribing for and in the presence of Dr. Robert. Provider Notation: Although this document has been carefully reviewed, there may still be some phonetic and other typographical errors. These errors are purely grammatical due to imperfections in the software program and should not be construed in any way to compromise the substance of the patient's medical care during this visit. Patient presenting with progressive shortness of breath for several days duration despite using her MDI and nebulizer at home on multiple occasions. Notably hypoxic in the field with O2 saturations in the mid 80% range. Please see PE findings. Laboratory markers demonstrate a normal WBC, no anemia or thrombocytopenia. Serum chemistries essentially unremarkable, demonstrating mildly elevated glucose at 197. Routine CXR demonstrates hyperexpanded lung field, no pneumothorax, or infiltrates. EKG demonstrates sinus tachycardia without acute ischemic changes. Patient treated with serial nebulizer therapy and although mildly clinically improved, harsh wheezes persist. Will discuss with hospitalist for admission for exacerbation of COPD and Hypoxia. Patient data External records reviewed:: [facility] previous records (Reviewed 04/09/25. Patient was seen for COPD exacerbation.) Clinical information provided by:: patient Social determinants that could affect healthcare access:: none Patient has the following chronic illnesses:: Hypercholesterolemia, Chronic Obstructive Pulmonary Disease, Asthma, Gastroesophageal Reflux Disease, Kidney Stones, Arthritis, Anxiety How is presenting disease/condition affected by chronic disease/condition?: exacerbated by Evaluation data The following diagnostics were reviewed and interpreted by me:: lab results, radiology exam(s) and EKG tracing(s) (EKG demonstrates sinus tachycardia with rate of 106 bpm, no acute ST segment changes, no ventricular ectopy, indeterminant axis, LAFB, per my interpretation.) Lab and/or radiology exams considered but not ordered:: None Interpretation Summary: RADIOLOGY Chest X-Ray: Pending official radiology report. Medications / Prescriptions Medications or Prescriptions considered but not ordered:: None Medication administrations:: Medication Administration History Acetaminophen (Acetaminophen 325 Mg Tablet) 650 mg PO Q6H PRN PRN Reason: Fever >100.4 or pain 1-3 Stop: 07/06/25 05:18 Hydrocodone Bitart/Acetaminophen (Hydrocodone/Apap 5/325 Tablet) 1 tab PO Q4HR PRN PRN Reason: PAIN SCALE 4-6 (Moderate Stop: 06/11/25 05:18 Albuterol/Ipratropium (Albuterol/Ipratropium (Duoneb) Rt Penny 3 Ml Nebu) 3 ml INH Q4HRRT WENDY Stop: 07/06/25 06:59 Last Admin: 06/06/25 06:05 Dose: 3 ml Documented By: NEGRO Docusate Sodium (Docusate Sod 100 Mg Capsule) 100 mg PO QDAY [facility]; Protocol Stop: 07/06/25 08:59 Famotidine (Famotidine Inj 10 Mg/Ml Vial 2 Ml) 20 mg IVP Q12HR [facility] Stop: 07/06/25 08:59 Heparin Sodium (Porcine) (Heparin Sod Inj 5000 Unit/Ml Vial) 5,000 unit SC Q12HR [facility] Stop: 06/20/25 08:59 Lactated Ringer's (Lactated Ringers) 1,000 mls @ 75 mls/hr IV .[id number] WENDY Stop: 07/06/25 05:14 Last Admin: 06/06/25 05:41 Dose: 75 mls/hr Documented By: LINA Azithromycin 250 mg/ Sterile (Water 2.5 ml/ Sodium Chloride) 252.5 mls @ 252.5 mls/hr IV QDAY WENDY Stop: 06/14/25 05:23 Azithromycin 500 mg/ Sodium (Chloride) 250 mls @ 250 mls/hr IV X1 ONE Stop: 06/06/25 06:24 Last Admin: 06/06/25 05:41 Dose: 250 mls/hr Documented By: LINA Ceftriaxone Sodium/Dextrose (Rocephin/D5w 1gm Iv Premix) 1 gm in 50 mls @ 100 mls/hr IV QDAY WENDY Stop: 06/13/25 05:25 Ceftriaxone Sodium/Dextrose (Rocephin/D5w 1gm Iv Premix) 1 gm in 50 mls @ 100 mls/hr IV X1 ONE Stop: 06/06/25 06:14 Methylprednisolone Sodium Succinate (Methylprednisolone Sod Succ 40 Mg/Ml Vial) 40 mg IVP QDAY [facility] Stop: 06/13/25 08:59 Ondansetron HCl (Ondansetron Inj 2 Mg/Ml Inj 2 Ml) 4 mg IVP Q6H PRN; Protocol PRN Reason: NAUSEA OR VOMITING Stop: 07/06/25 05:18 Discontinued Medications Albuterol (Albuterol Rt 2.5 Mg/3 Ml Nebu) 10 mg HHN X1 ONE Stop: 06/06/25 02:01 Last Admin: 06/06/25 02:40 Dose: 10 mg Documented By: GABBIE Dexamethasone Sodium Phosphate (10 mg/ Sodium Chloride) 101 mls @ 101 mls/hr IV X1 ONE Stop: 06/06/25 02:01 Last Infusion: 06/06/25 04:06 Dose: Infused Documented By: Admin: 06/06/25 03:06 Dose: 101 mls/hr Documented By: MICHAEL Ipratropium [place] (Ipratropium Rt 0.5 Mg/ 2.5 Ml Nebu) 0.5 mg HHN X1 ONE Stop: 06/06/25 02:02 Last Admin: 06/06/25 02:40 Dose: 0.5 mg Documented By: GABBIE Sodium Chloride (Sodium Chloride Rt 10% 15 Ml Nebu) 5 ml INH X1 ONE Stop: 06/06/25 05:20 See above if any Consultations Consultation(s) initiated? (list below): Yes Consultation #1 (Physician, Specialty, Details): Discussed with resident physician Dr. Anderson for admission. Reviewed the patient?s HPI, PMHx, lab and/or radiology results. Discussed treatment plan. Will consult an admission to the hospitalist. Time: 04:47 Diagnosis Shortness of Breath Differential Diagnosis: acute exacerbation of chronic obstructive airways disease, congestive heart failure, community acquired pneumonia and pulmonary embolism Most likely diagnosis given after review of the tests above:: COPD exacerbation, Hypoxia Admission Indicated Admission indicated?: indicated Explain why admission is indicated or not indicated:: COPD exacerbation, Hypoxia Admission Request Was there a request for admission?: Yes Admission Attestation Admission request attestation: Discussed case with [] from Hospitalist service regarding admission. Discussed patients ED course, exam findings, labs, and radiology results. The Hospitalist [agrees,declines] to accept the patient for admission. Disposition Plan Disposition Plan: Admit Discharge Plan Plan Patient Disposition: Admit Acute Care w/in Hospital Prescriptions/Referrals Prescriptions/Med Rec: No Action estradiol [Estrace] 0.01 % (0.1 mg/gram) cream 2 g vaginal DIRECTED Patient Comments: twice a week montelukast [Singulair] 10 MG tablet 10 mg PO HS Qty: 0 albuterol sulfate 0.63 mg/3 mL Solution For Nebulization 0.63 mg INHALATION BID PRN (Reason: Shortness Of Breath) fluticasone propionate 50 mcg/actuation spray,suspension 1 spray INTRANASAL DAILY Patient Comments: SHAKE LQ AND U 1 SPR IEN BID Rx Instructions: 1 spray each nose albuterol sulfate 90 mcg/actuation HFA aerosol inhaler INHALATION [id number] PRN (Reason: Shortness Of Breath Or Wheezing) Patient Comments: INHALE 2 PUFFS BY MOUTH EVERY 6 HOURS NEEDED Trelegy Ellipta 100-62.5-25 mcg blister with device 1 inh INHALATION DAILY Patient Comments: INHALE 1 PUFF BY MOUTH DAILY aspirin 81 mg Tablet 81 mg PO QDAY atorvastatin 10 mg tablet 10 mg PO DAILY Patient Comments: TAKE ONE TABLET BY MOUTH EVERY DAY FOR CHOLESTEROL estradiol 1 mg tablet 2 mg PO DAILY oxycodone-acetaminophen 5-325 mg tablet 1 tab PO BID PRN (Reason: Pain) Rx Instructions: Hx right total knee replacement on 05/25/21 ipratropium-albuterol 0.5 mg-3 mg(2.5 mg base)/3 mL solution for nebulization 3 ml inhalation QID PRN (Reason: shortness of breath) Qty: 180 0RF Referrals: No Primary/Family,Physician [Primary Care Provider] - In 1 week Problem List Clinical Impression: COPD exacerbation, Hypoxia Patient/Caregiver Discharge Instructions Print Language: Z[place]ian Stand Alone Forms: Negin Award Info., Patient Portal Info Letter
[2025-06-06] MEDS: IPRATROPIUM RT 0.5 MG/ 2.5 ML NEBU HHN (02:40)
[2025-06-06] MEDS: ALBUTEROL RT 2.5 MG/3 ML NEBU 10 MG HHN (02:40)
[2025-06-06] MEDS: DEXAMETHASONE INJ 10 MG in SODIUM CHLORIDE 0.9% 100 ML 101 MG IV (03:06)
[2025-06-06 05:05] LABS: D-Dimer < 250 ng/mL (<600)
--- NOTE | 2025-06-06 05:30 | PD.RESHP ---
Documentation for date of: 06/06/25 HPI History of Present Illness History of present illness: 59 year old female with PMHx 30 years of smoking, COPD, asthma, GERD, anxiety, kidney stones, hypercholesterolemia, and arthiritis who presented to the ED following two days of progressively worsening SOB. Admitted for Acute Hypoxic Respiratory Failure most likely secondary to COPD exacerbation ED Course Summary Vitals: BP 152/97 HR 125 RR 18 T 98.1F O2 94% NC 5L Labs: CBC wnl, CMP wnl, glucose 197 Imaging: CXR no focal consolidation or effusion EKG sinus tachy QTC 430 Treatment: Albuterol, ipratropium bromide, dexamethasone, LR Upon initial examination patient is anxious. She states she has been short of breath the last several days, but she was still smoking cigarettes during this time. She used her neubulizer and MDI 5 times before calling the ambulance to pick her up. Apparently her O2 sats dipped to mid 80% and improved with NC and nebulized treatment. She denies any chest pain, pain radiating to her arms or neck. She endorses a history of self catheterization twice a weeek because she residual urine left in her bladder, she has an extensive history of bladder surgeries that she claims is a mystery. Code: Full Insulin: No Medical Hx: COPD, asthma, GERD, anxiety, kidney stones, hypercholesterolemia, and arthiritis Medications: montelukast, estradiol, aspirin 81mg (no longer taking due to bruising), atorvastatin 10mg, cyclobenzaprine, trelegy, albuterol, flucatisone, loratidine. Allergies: NKA Surgical history: Hysterectomy, Tonsillectomy, Appendectomy, Tubal Ligation, rectocele, cystocele, urethral sling, R kindey lithitropsy, total R knee replacement. 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 Exam Vital Signs Temp Pulse Resp BP Pulse Ox O2 Del Method O2 Flow Rate 97.4 F 97 18 138/104 H 96 Nasal Cannula 4 06/06/25 04:16 06/06/25 04:16 06/06/25 04:16 06/06/25 04:16 06/06/25 04:16 06/06/25 00:20 06/06/25 02:42 Narrative Exam GENERAL APPEARANCE: AOx4. NAD, activity normal for age, well developed/ well nourished, no cyanosis, pallor, or diaphoresis. HEENT: Normocephalic atraumatic, no facial trauma, neck is supple. Lids/conjunctiva normal. Mucous membranes moist, nares normal, lips/teeth normal uvula midline without oral pharyngeal erythema, exudate or swelling TMs normal bilaterally. No lymphangitis/lymphedema. CARDIAC: Regular rate and rhythm, S1+S2 heard. No murmurs, rubs, or gallops noted RESPIRATORY: Diffuse bilateral wheezes ABDOMINAL: NBS. Soft, ND/NT. No evidence of fluid wave. No pulsatile masses on exam, rebound tenderness, Ramos sign or pain over Mcburney's point. MUSCLES/EXTREMITIES: No abnormal range of motion, no swelling. DERM: Warm, pink and dry. No rashes, dermatoses, petechiae or lesions. NEUROLOGICAL: Speech is clear and appropriate. Normal level of consciousness. Gait and coordination are normal. 5/5 strength in all extremities. PSYCH: Normal mood and affect. Judgement/competence is appropriate Results: Labs 06/07/25 05:00 06/07/25 05:00 Labs: Short CBC 06/06/25 Range/Units 00:59 WBC 10.4 (3.6-11.0) Thou/mm3 Hgb 14.3 (12.0-16.0) g/dL Hct 41.5 (36.0-46.0) % Plt Count 277 (140-440) Thou/mm3 [facility] 06/06/25 00:59 Sodium 141 Potassium 3.7 Chloride 107 Carbon Dioxide 26.0 BUN 11 Creatinine 0.9 Glucose 197 H Calcium 9.0 Cardiac Enzymes 06/06/25 Range/Units 00:59 Troponin I < 0.020 (0.0-0.045) ng/mL Liver Function 06/06/25 Range/Units 00:59 Total Bilirubin 0.2 L (0.3-1.2) mg/dL AST 18 (0-34) U/L ALT 15 (10-49) U/L Alkaline Phosphatase 97 (46-116) U/L Albumin 4.3 (3.4-4.8) gm/dL Quality Measures Quality Measures VTE prophylaxis Medications Home Medications and Allergies Home Medications ?Medication ?Instructions ?Recorded ?Confirmed ?Type montelukast 10 mg tablet 10 mg PO HS #0 tabs 06/28/14 06/06/25 History (Singulair) albuterol sulfate 0.63 mg/3 mL 0.63 mg inhalation BID PRN 03/26/19 06/06/25 History solution for nebulization Shortness Of Breath fluticasone propionate 50 1 spray intranasal DAILY 12/03/19 06/06/25 History mcg/actuation nasal spray,suspension albuterol sulfate 90 mcg/actuation 2 inh inhalation [id number] PRN 11/21/21 06/06/25 History aerosol inhaler Shortness Of Breath Or Wheezing atorvastatin 10 mg tablet 10 mg PO DAILY 11/21/21 06/06/25 History estradiol 1 mg tablet 2 mg PO DAILY 11/21/21 06/06/25 History oxycodone-acetaminophen 5 mg-325 1 tab PO Q6H PRN Pain 11/21/21 06/06/25 History mg tablet cyclobenzaprine 10 mg tablet 10 mg PO BID 06/06/25 06/06/25 History lidocaine 5 % topical patch 1 patch topical Q24H 06/06/25 06/06/25 History loratadine 10 mg tablet 10 mg PO DAILY 06/06/25 06/06/25 History Allergies Allergy/AdvReac Type Severity Reaction Status Date / Time metformin Allergy Flushing Verified 06/07/25 10:10 Visit Medications Acetaminophen (Acetaminophen 325 Mg Tablet) 650 mg PO Q6H PRN PRN Reason: Fever >100.4 or pain 1-3 Stop: 07/06/25 05:18 Hydrocodone Bitart/Acetaminophen (Hydrocodone/Apap 5/325 Tablet) 1 tab PO Q4HR PRN PRN Reason: PAIN SCALE 4-6 (Moderate Stop: 06/11/25 05:18 Albuterol/Ipratropium (Albuterol/Ipratropium (Duoneb) Rt Penny 3 Ml Nebu) 3 ml INH Q4HRRT WENDY Stop: 07/06/25 06:59 Docusate Sodium (Docusate Sod 100 Mg Capsule) 100 mg PO QDAY WENDY; Protocol Stop: 07/06/25 08:59 Famotidine (Famotidine Inj 10 Mg/Ml Vial 2 Ml) 20 mg IVP Q12HR [facility] Stop: 07/06/25 08:59 Heparin Sodium (Porcine) (Heparin Sod Inj 5000 Unit/Ml Vial) 5,000 unit SC Q12HR [facility] Stop: 06/20/25 08:59 Lactated Ringer's (Lactated Ringers) 1,000 mls @ 75 mls/hr IV .[id number] [facility] Stop: 07/06/25 05:14 Azithromycin 250 mg/ Sterile (Water 2.5 ml/ Sodium Chloride) 252.5 mls @ 252.5 mls/hr IV QDAY [facility] Stop: 06/14/25 05:23 Azithromycin 500 mg/ Sodium (Chloride) 250 mls @ 250 mls/hr IV X1 ONE Stop: 06/06/25 06:24 Ceftriaxone Sodium/Dextrose (Rocephin/D5w 1gm Iv Premix) 1 gm in 50 mls @ 100 mls/hr IV QDAY [facility] Stop: 06/13/25 05:25 Methylprednisolone Sodium Succinate (Methylprednisolone Sod Succ 40 Mg/Ml Vial) 40 mg IVP QDAY [facility] Stop: 06/13/25 08:59 Ondansetron HCl (Ondansetron Inj 2 Mg/Ml Inj 2 Ml) 4 mg IVP Q6H PRN; Protocol PRN Reason: NAUSEA OR VOMITING Stop: 07/06/25 05:18 Discontinued Medications Albuterol (Albuterol Rt 2.5 Mg/3 Ml Nebu) 10 mg HHN X1 ONE Stop: 06/06/25 02:01 Last Admin: 06/06/25 02:40 Dose: 10 mg Dexamethasone Sodium Phosphate (10 mg/ Sodium Chloride) 101 mls @ 101 mls/hr IV X1 ONE Stop: 06/06/25 02:01 Last Infusion: 06/06/25 04:06 Dose: Infused Ipratropium [place] (Ipratropium Rt 0.5 Mg/ 2.5 Ml Nebu) 0.5 mg HHN X1 ONE Stop: 06/06/25 02:02 Last Admin: 06/06/25 02:40 Dose: 0.5 mg Sodium Chloride (Sodium Chloride Rt 10% 15 Ml Nebu) 5 ml INH X1 ONE Stop: 06/06/25 05:20 Assessment & Plan Plan 59 year old female with PMHx 30 years of smoking, COPD, asthma, GERD, anxiety, kidney stones, hypercholesterolemia, and arthritis who presented to the ED following two days of progressively worsening SOB. Admitted for Acute Hypoxic Respiratory Failure most likely secondary to COPD exacerbation #Acute on chronic hypoxic respiratory failure 2/ #COPD exacerbation #complicated by history of asthma #CAP 2 days of worsening shortness of breath resistant to her MDI and nebulizer treatment, O2 sats in the mid 80% per EMS improved with NC. ABG pO2 42 HCO3 27 O2 saturation 78 pCO2 46. Long history of smoking, and currently smoking during her exacerbations. Plan: -FUP sputum inductions:___ -Azithromycin 500mg -->250mg (06/06 - -Ceftriaxone 1g IV QD (06/06 - -Methylprednisone 40mg IVP QD -Duoneb 3mL INH Q4HRRT -IV LR -Cocci IgM:____ -Incentive spirometry -BIPAP prn #Hx of anxiety Plan: - pending med rec restart home meds #Hx of GERD -On famotidine #Hx Hypercholesterolemia - Restart atorvastatin 10mg PO QD #Hx of underactive bladder Biweekly straight caths for urinary retention Plan: -No esteban at the moment but consider bladder scans or a esteban Health Maintenance: Code status: Full DVT prophylaxis: Heparin subq GI prophylaxis: famotidine Diet: Regular Esteban: None Lines: PIV Supplemental O2: NC oxy mask, bipap Disposition: Tele Patient seen and reviewed with attending Dr. Gaffney. Note written by Antony Anderson MD PGY-1 Attending Provider Attestation/Addendum After examination of the patient and review of the clinical data I feel that this patient needs admission to the hospital for further treatment/evaluation. Plan of care discussed with patient and is in agreement. I Jerome Gaffney MD, attest that I was physically present for ruff portions of evaluation, and examined patient, labs and imagings and plan of care were discussed with IM residents team, and I agree with the findings and plans documented above.
[2025-06-06] MEDS: RINGERS LACTATED 1000 ML 1,000 ML 75 ML IV (05:41)
[2025-06-06] MEDS: AZITHROMYCIN INJ 500 MG in SODIUM CHLORIDE 0.9% 250 ML 250 ML 250 MG IV (05:41)
[2025-06-06] MEDS: ALBUTEROL/IPRATROPIUM (Duoneb) RT SOL 3 ML NEBU INH ×5 (06:05→22:37)
[2025-06-06 06:22] LABS: Allen Test Not Performed; Base Excess 1 (-3-3); HCO3 27 mEq/L (20-26); Inspired Oxygen, FIO2 21 %; O2 Saturation 78 % (91-98); PCO2 46 mmHg (32.0-48.0); Puncture Site Right Radial; pH, Arterial 7.37 (7.35-7.45)
[2025-06-06 06:23] LABS: PO2 42 mmHg (83-108)
--- NOTE | 2025-06-06 07:21 | PC.NURSE ---
ATTEMPTED TO CALL REPORT TO TONG RAINES ON TELE. SHE IS GETTING REPORT ON HER PATIENTS SO SHE WILL CALL BACK WHEN FINISHED.
[2025-06-06] MEDS: cefTRIAXone/D5w 1gm IV premix 1 GM/50 ML BAG IV (07:35)
--- NOTE | 2025-06-06 07:38 | PC.NURSE ---
REPORT GIVEN TO TONG RAINES AND ALL QUESTIONS ANSWERED.
--- NOTE | 2025-06-06 10:27 | XR_ITS ---
Examination: Duplex scan of the lower extremity, unilateral right complete Date and time of exam: June 06, 2025, 1115 hours INDICATIONS: Right leg edema today Technique: Duplex scan of the extremity veins using B-mode/grayscale imaging and Doppler spectral analysis and color flow Attention is directed to internal echogenicity, compression and augmentation involving these veins, color flow assessment, spectral analysis Findings: Major deep venous structures in the extremity demonstrate normal course and caliber. There is no evidence of deep vein thrombosis. Normal color flow and spectral analysis Impression: Negative for DVT..
--- NOTE | 2025-06-06 10:36 | XR_ITS ---
Examination: CT brain head without contrast. 2-D sagittal coronal reconstructions Date and time of exam: June 06, 2025, 1113 hours INDICATIONS: Irregular pupil size this morning with altered mental status COMPARISON: June 26, 2016 CTDI: vol (mGy): 48.8 DLP: (mGycm): 965 Technique: Multiple CT axial sections of the brain have been obtained, 5 mm slice thickness. Contrast has not been administered. 2-D sagittal, coronal reconstructions have been obtained Low dose protocols were performed. One or more of the following dose reduction techniques were used; automated exposure control, adjustment of the mA and/or KV according to patient size, use of iterative reconstruction technique. Findings: No significant ventricular enlargement. Intra-axial or extra-axial hemorrhage density is not seen. No mass effect or midline shift Basal cisterns are not remarkable. Fourth ventricle is midline. Cranial vault intact. Impression: Significant patient motion limits this study No gross hemorrhage or mass effect If focal neurologic findings persist, consider brain MRI follow-up, stroke protocol
[2025-06-06] MEDS: HEPARIN SOD INJ 5000 UNIT/ML VIAL SC (10:42)
[2025-06-06] MEDS: NICOTINE PATCH 21 MG/24 HR PATCH.TD24 TOP (11:17)
[2025-06-06 13:11] LABS: Cocci Serology, IgM Negative (Negative)
--- NOTE | 2025-06-06 13:33 | ESPR_ITS ---
<Statement entered by Isai Cloud MD - 06/06/25 18:01> Patient was seen and examined at bedside. I agree on the assessment and plan on this note as documented by resident Anjana Aguilar DO PGY1. 59-year-old female with past medical history as below admitted for COPD exacerbation, does have significant smoking history as well. Patient's oxygen saturation has improved, currently saturating well on room air, no evidence of significant pneumonia on chest x-ray, will discontinue antibiotics. Will continue breathing treatments and IV steroids. Finding of anisocoria, CT scan of the head negative, will consult teleneurology. Appreciate recommendations otherwise patient is stable has no current complaints, will continue to monitor anticipate discharge in the next 24 hours once COPD symptoms improve, will benefit from pulmonary rehab outpatient. Smoking cessation advised. Case discussed with attending Dr. Binu Gonsales, DO Isai Cloud MD PGY-2 Documentation for date of: 06/06/25 Subjective Subjective Interval history: 59-year-old female with past medical history of 30years smoking, COPD, asthma, GERD, anxiety, kidney stones, HLP, and arthritis presents with progresively worsening SOB x 2 days. Admitted for Acute Hypoxic Respiratory Failure most likely secondary to COPD exacerbation. ED: CXR negative. EKG sinus tachycardia. Patient reported ED visit about a month ago also for COPD exacerbation. Reported using inhalers and nebulizer at home which did not help with shortness of breath. Not on home oxygen. Patient is noted to be a mouth breather with NC to her mouth. Admitted to fatigue, headache, dry cough. Denied recent sick contact. Exam Vital Signs Temp Pulse Resp BP Pulse Ox O2 Del Method O2 Flow Rate 96.9 F 102 H 23 H 141/89 H 97 Nasal Cannula 2 06/06/25 12:10 06/06/25 12:10 06/06/25 12:10 06/06/25 12:10 06/06/25 12:10 06/06/25 12:10 06/06/25 12:10 Narrative Exam GENERAL APPEARANCE: AOx4. NAD, activity normal for age, well developed/ well nourished, no cyanosis, pallor, or diaphoresis. HEENT: Normocephalic atraumatic, no facial trauma, neck is supple. Lids/conjunctiva normal. Mucous membranes moist, nares normal, lips/teeth normal uvula midline without oral pharyngeal erythema, exudate or swelling TMs normal bilaterally. No lymphangitis/lymphedema. Right pupil is dilated more than left pupil. CARDIAC: Regular rate and rhythm, S1+S2 heard. No murmurs, rubs, or gallops noted RESPIRATORY: Diffuse bilateral wheezes ABDOMINAL: NBS. Soft, ND/NT. No evidence of fluid wave. No pulsatile masses on exam, rebound tenderness, Ramos sign or pain over Mcburney's point. MUSCLES/EXTREMITIES: No abnormal range of motion. RLE +2 pitting edema DERM: Warm, pink and dry. No rashes, dermatoses, petechiae or lesions. NEUROLOGICAL: Speech is clear and appropriate. Normal level of consciousness. Gait and coordination are normal. 5/5 strength in all extremities. PSYCH: Normal mood and affect. Judgement/competence is appropriate Objective Labs 06/07/25 05:00 06/07/25 05:00 Labs: Laboratory Results - last 24 hr 06/06/25 06/06/25 00:59 06:18 WBC 10.4 RBC 4.29 Hgb 14.3 Hct 41.5 MCV 97 MCH 33.3 MCHC 34.5 RDW Std Deviation 42.3 Plt Count 277 Neut % (Auto) 66 Lymph % (Auto) 24 [place] % (Auto) 7 Eos % (Auto) 3 Baso % (Auto) 1 Neut # (Auto) 6.9 Lymph # (Auto) 2.5 [place] # (Auto) 0.7 Eos # (Auto) 0.3 Baso # (Auto) 0.1 Immature Gran # (Auto) 0.05 H Absolute Nucleated RBC 0.00 Immature Gran % 1 H Nucleated RBC % 0 D-Dimer < 250 Puncture Site Right Radial ABG pH 7.37 ABG pCO2 46 ABG pO2 42 L* ABG HCO3 27 H ABG O2 Saturation 78 L ABG Base Excess 1 FiO2 21 Sodium 141 Potassium 3.7 Chloride 107 Carbon Dioxide 26.0 Anion Gap 8 BUN 11 Creatinine 0.9 Estim Creat Clear Calc 55.0 L eGFR > 60 BUN/Creatinine Ratio 12 Glucose 197 H Calculated Osmolality 285 Calcium 9.0 Corrected Calcium 9.0 Total Bilirubin 0.2 L AST 18 ALT 15 Alkaline Phosphatase 97 Troponin I < 0.020 B-Natriuretic Peptide < 20 Total Protein 6.2 Albumin 4.3 Globulin 1.9 L Albumin/Globulin Ratio 2.3 H Coccidioides IgM Ab Negative ABG Interpretation ABG results: 06/06/25 06:18 ABG pH 7.37 ABG pCO2 46 ABG pO2 42 L* ABG HCO3 27 H ABG O2 Saturation 78 L ABG Base Excess 1 Quality Measures Quality Measures none Assessment & Plan Assessment Current Active Medications: Generic Name Dose Route Start Last Admin Trade Name Freq PRN Reason Stop Dose Admin Acetaminophen 650 mg 06/06/25 05:19 Acetaminophen 325 Mg Tablet PO 07/06/25 05:18 Q6H PRN Fever >100.4 or pain 1-3 Hydrocodone Bitart/Acetaminophen 1 tab 06/06/25 05:19 Hydrocodone/Apap 5/325 Tablet PO 06/11/25 05:18 Q4HR PRN PAIN SCALE 4-6 (Moderate Albuterol/Ipratropium 3 ml 06/06/25 07:00 06/06/25 10:11 Albuterol/Ipratropium (Duoneb) Rt Penny 3 Ml Nebu INH 07/06/25 06:59 3 ml Q4HRRT WENDY Administration Atorvastatin Calcium 10 mg 06/06/25 21:00 Atorvastatin Calcium 10 Mg Tablet PO 07/06/25 20:59 HS WENDY Docusate Sodium 100 mg 06/06/25 09:00 06/06/25 09:45 Docusate Sod 100 Mg Capsule PO 07/06/25 08:59 Not Given QDAY [facility] Protocol Famotidine 20 mg 06/06/25 09:00 06/06/25 09:45 Famotidine Inj 10 Mg/Ml Vial 2 Ml IVP 07/06/25 08:59 Not Given Q12HR WENDY Heparin Sodium (Porcine) 5,000 unit 06/06/25 09:00 06/06/25 10:42 Heparin Sod Inj 5000 Unit/Ml Vial SC 06/20/25 08:59 5,000 unit Q12HR WENDY Administration Methylprednisolone Sodium Succinate 40 mg 06/06/25 09:00 06/06/25 09:46 Methylprednisolone Sod Succ 40 Mg/Ml Vial IVP 06/13/25 08:59 40 mg QDAY WENDY Administration Nicotine 21 mg 06/06/25 10:45 06/06/25 11:17 Nicotine Patch 21 Mg/24 Hr Patch.Td24 TOP 07/06/25 10:44 21 mg QDAY WENDY Administration Ondansetron HCl 4 mg 06/06/25 05:19 Ondansetron Inj 2 Mg/Ml Inj 2 Ml IVP 07/06/25 05:18 Q6H PRN NAUSEA OR VOMITING Protocol Plan 59 year old female with PMHx 30 years of smoking, COPD, asthma, GERD, anxiety, kidney stones, hypercholesterolemia, and arthritis who presented to the ED following two days of progressively worsening SOB. Admitted for Acute Hypoxic Respiratory Failure most likely secondary to COPD exacerbation #AHRF 2/2 #COPD exacerbation #complicated by history of asthma 2 days of worsening shortness of breath resistant to her MDI and nebulizer treatment, O2 sats in the mid 80% per EMS improved with NC. ABG pO2 42 HCO3 27 O2 saturation 78 pCO2 46. History of smoking about 1 pack per week x 30 years, still smoke occasionally. Patient reported dry cough. Last exacerbation about a month ago. Patient is a mouth breather with NC to her mouth. Not tripoding today. Bilateral wheezing appreciated. Plan: -Discontinue azithromycin and ceftriaxone -Methylprednisone 40mg IVP QD -Duoneb 3mL INH Q4HRRT -Pending Cocci -Incentive spirometry -BIPAP prn #Anisocoria Right pupil is more dilated compared to left side. Patient reported these are new to her. Denied blurry vision, double vision, weakness. CT head negative. Plan: -Consult neurology, appreciate recs #Right leg pitting edema RLE +2 pitting edema. Denied pain. Admitted to shortness of breath, likely from COPD exacerbation. DVT negative. Plan: -Consider cardiology outpatient followup #Hx of anxiety Plan: - pending med rec restart home meds #Hx of GERD -On famotidine #Hx Hypercholesterolemia - Restart atorvastatin 10mg PO QD #Hx of underactive bladder Biweekly straight caths for urinary retention Plan: -No esteban at the moment but consider bladder scans or a esteban Health Maintenance: Code status: Full DVT prophylaxis: Heparin subq GI prophylaxis: famotidine Diet: Regular Esteban: None Lines: PIV Supplemental O2: NC Disposition: Tele Assessment and plan discussed with my attending physician Dr. Gonsales and Dr. Cloud (PGY-2). Dr. Aguilar (PGY-1) ? resident physician in radiology Attending Provider Attestation/Addendum I have discussed and was present for the essential components of the history, physical examination, diagnosis, and treatment plan with the resident. I agree with the patient's care as documented by the resident and amended herein by me. Christos Gonsales DO. Although this document has been carefully reviewed, there may still be some phonetic and other typographical errors. These errors are purely grammatical due to imperfections in the software program and should not be construed in any way to compromise the substance of the patient's medical care during this visit.
--- NOTE | 2025-06-06 15:25 | PC.SS ---
59YO White female; reason for visit: COPD EXACERBATION Technology Director met with patient at bedside to complete initial assessment. Role and purpose of today?s contact explained. Patient stated she lives with her son. She reports using a cane for ambulation and is independent with ADLs. Patient stated her sibling Garrison Minaya [phone] is her primary medical surrogate decisionmaker. PHARMACY: [facility]. PCP: Wesly Abreu, last appt. was April 2025. Unable to recall exact date. Patient would like to discharge home when medically clear. NEXT OF KIN: Sibling Garrison Minaya [phone] DISCHARGE PLAN: Home, family to transport.
--- NOTE | 2025-06-06 19:00 | PC.NURSE ---
day shift nurse notified me of patient stating that they had taken their home meds, upon asking patient, patient stated they had brought meds for med rec and took her meds, pt educated on the importance of not taking home meds while at their stay in the hospital as we do med rec and continue their home meds while being admitted. pt verbalized understanding of not taking their home meds. plan of care ongoing.
[2025-06-06] MEDS: ACETAMINOPHEN 325 MG TABLET 650 MG PO (19:23)
[2025-06-07] VITALS (15 sets, daily range): BP systolic 116–155; BP diastolic 75–99; PULSE 92–140; RESP 17–96; TEMP 36.1–36.7; O2SAT 94–100
--- NOTE | 2025-06-07 | XR_ITS ---
Examinations: MRI Brain without intravenous contrast. MRA brain without intravenous contrast. MRA carotids without intravenous contrast 3-D vascular reconstructions Date and time of exam: June 07, 2025, 1200 hours Indication: Irregular pupil size altered mental status yesterday Technique: Multiple axial and sagittal images of the brain have been obtained MRA brain carotid images without contrast obtained, including 3-D postprocessing, vascular maximum intensity projection images Findings: [place] is not enlarged. The optic chiasm and infundibular stalk are not remarkable. Prepontine and interpeduncular cisterns are not enlarged. No localized enlargement of the medulla or korey. Fourth ventricle and cerebellar tonsils normal in position. Subacute hemorrhage is not seen. Fourth ventricle is midline. Mass in the cerebellopontine angle region is not evident. 7th and 8th nerve complexes exhibits symmetry. Globes are symmetrical with no retro-orbital mass. Increased white matter signal evident, scattered punctate foci increased signal in the white matter Diffusion-weighted images demonstrate no focus of restricted diffusion Mass-effect upon the ventricular system is not identified. MRA carotid images degraded by patient motion. MRA brain images no large vessel occlusions Impression: Negative for acute hemorrhage mass effect or midline shift Scattered punctate foci increased signal in the white matter, differential would include demyelinating disease No large vessel occlusions No acute infarct
[2025-06-07] MEDS: ALBUTEROL/IPRATROPIUM (Duoneb) RT SOL 3 ML NEBU INH ×6 (02:47→23:18)
[2025-06-07 05:54] LABS: Basophils # (Auto) 0.0 Thou/mm3 (0.0-0.2); Basophils % (Auto) 0 % (0-2.5); Eosinophils # (Auto) 0.1 Thou/mm3 (0.0-0.5); Eosinophils % (Auto) 0 % (0-10); Hematocrit 40.1 % (36.0-46.0); Hemoglobin 13.6 g/dL (12.0-16.0); Immature Granulocytes Auto 0.07 Thou/mm3 (0.00-0.00); Lymphocytes # (Auto) 2.5 Thou/mm3 (1.0-4.8); Lymphocytes % (Auto) 20 % (10-50); Mean Corpuscular HGB Conc 33.9 g/dl (31.0-37.0); Mean Corpuscular Hemoglobin 32.9 pg (25.0-35.0); Mean Corpuscular Volume 97 fL (80-100); Monocytes # (Auto) 0.9 Thou/mm3 (0.0-0.8); Monocytes % (Auto) 7 % (0-12); Neutrophils # (Auto) 9.1 Thou/mm3 (1.8-7.7); Neutrophils % (Auto) 72 % (37-80); Nucleated Red Blood Cell # 0.00 Thou/mm3 (0.00-0.00); Nucleated Red Blood Cell % 0 /100 WBC (0); Platelet Count 268 Thou/mm3 (140-440); RDW Standard Deviation 42.9 fL (36.4-46.3); Red Blood Count 4.14 Miln/mm3 (4.00-5.20); White Blood Count 12.8 Thou/mm3 (3.6-11.0)
[2025-06-07 06:13] LABS: Glucose Estimated Average 160 mg/dL (80-131); Hemoglobin A1C 7.2 % Hgb (4.8-6.0)
[2025-06-07 06:18] LABS: Alanine Aminotransferase 14 U/L (10-49); Albumin, Serum 4.0 gm/dL (3.4-4.8); Albumin/Globulin Ratio 2.2 (1.2-2.2); Alkaline Phosphatase 83 U/L (46-116); Anion Gap 8 (7-16); Aspartate Amino Transferase 13 U/L (0-34); BUN/Creatinine Ratio 17 Ratio (12-20); Bilirubin,Total 0.2 mg/dL (0.3-1.2); Blood Urea Nitrogen 12 mg/dL (9-23); Calcium 9.0 mg/dL (8.3-10.6); Calcium (Corrected) 9.0 mg/dL (8.5-10.1); Carbon Dioxide 26.3 mMol/L (20.0-31.0); Chloride 109 mMol/L (98-107); Creatinine (Component) 0.7 mg/dL (0.6-1.3); Estimated Creatinine Clearance 84.9 mL/min (>60); Globulin 1.8 gm/dL (2.3-3.5); Glucose 140 mg/dL (74-106); Magnesium 1.9 mg/dL (1.6-2.6); Osmolality,Calculated 286 (275-295); Phosphorous 3.1 mg/dL (2.4-5.1); Potassium 3.9 mMol/L (3.4-5.1); Sodium 143 mMol/L (136-145); Total Protein 5.8 gm/dL (5.7-8.2); eGFR > 60 See Note
--- NOTE | 2025-06-07 08:56 | PC.SS ---
rounding note: Patient from home. Poss d/c home.
[2025-06-07] MEDS: NICOTINE PATCH 21 MG/24 HR PATCH.TD24 TOP (09:10)
[2025-06-07] MEDS: DOCUSATE SOD 100 MG CAPSULE PO (09:10)
[2025-06-07] MEDS: HEPARIN SOD INJ 5000 UNIT/ML VIAL SC (09:10)
[2025-06-07] MEDS: ASPIRIN EC 81 MG TABEC PO (09:15)
--- NOTE | 2025-06-07 09:17 | ESCONSULT_ITS ---
Tele Neuro Consultation Consultation Date 06/07/25 Most Recent Vital Signs Last Vital Signs Temp 97.4 F 06/07/25 07:48 Pulse 117 H 06/07/25 07:48 Resp 21 H 06/07/25 07:48 BP 155/99 H 06/07/25 07:48 Pulse Ox 94 L 06/07/25 07:48 O2 Del Method Room Air 06/07/25 07:48 O2 Flow Rate 2 06/06/25 15:37 Laboratory-Coagulation Panel D-Dimer < 250 ng/mL (<600) 06/06/25 00:59 Consultation Narrative [facility] TeleNeurology Consult Services Routine Consult New Patient Name: Rosalee Eid Date of : 1965 Identification Number: Date of Service: 06/07/2025 09:15:36 Diagnosis ? H57.02 - Anisocoria Impression 59 yo F w h/o HLD, ?borderline DM, smoker, COPD, arthritis, who presented to ED 06/06 due to respiratory sx and COPD exacerbation. Pt noted to have aniscoria by primary team. Pt followed by outpatient ophthalmology for cataract pending [place] but was not informed of any pupillary abnormalities. CTH limited due to motion but no gross hemorrhage or mass effect. Pt does have risk vascular factors therefore will evaluate for central abnormality. Recommendations: -- MRI brain wo -- MRA H/N -- Labs: B12, folate, TSH, lipid profile -- ASA 81mg -- Statin for goal LDL<70 -- Glycemic control, goal A1c<7 -- Smoking cessation -- Tele -- Neuro checks -- DVT/GI ppx per primary team -- PT/OT/ST as appropriate -- Cont to address other medical issues Our recommendations are outlined below Antithrombic Medications : Aspirin 81 mg PO daily DVT Prophylaxis : Choice of Primary Team Dispositions : Neurology will follow Labs Cr=0.7 A1c=7.2 Chief Complaint: unequal pupil History of Present Illness: Patient is a 59 year old Female. 59 yo F w h/o HLD, ?borderline DM, smoker, COPD, arthritis, who presented to ED 06/06 due to respiratory sx and SOB. Pt had been undergoing treatment for COPD exacerbation. Pt was noted to have unequal pupil size. Pt reports she had never noticed any problems w her pupils. She had been having gradual worsening vision and had been followed by outpatient ophthalmology ? pending cataract surgery but was never told that there were issues w her pupil size. She denies dizziness but reported significant ALVA yesterday. Has h/o neck injury and sometimes has ALVA related but no migraine. ALVA resolved. No focal weakness or numbness. Also has back problems w numbness in back of legs and feet pending back surgery. Has chronic urinary issues ? retention and has to self cath 2x/week, but no change. Never been dx?ed w DM but was told she is borderline in the past. Past Medical History: ? Hyperlipidemia Medications: No Anticoagulant use No Antiplatelet use Reviewed EMR for current medications Allergies: Reviewed Social History: Smoking: Yes Family History: There is no family history of premature cerebrovascular disease pertinent to this consultation ROS : Review of Systems: Reviewed Past Surgical History: There Is No Surgical History Contributory To Today?s Visit Examination 1A: Level of Consciousness - Alert; keenly responsive + 0 1B: Ask Month and Age - Both Questions Right + 0 1C: Blink Eyes & Squeeze Hands - Performs Both Tasks + 0 2: Test Horizontal Extraocular Movements - Normal + 0 3: Test Visual Moss - No Visual Loss + 0 4: Test Facial Palsy (Use Grimace if Obtunded) - Normal symmetry + 0 5A: Test Left Arm Motor Drift - No Drift for 10 Seconds + 0 5B: Test Right Arm Motor Drift - No Drift for 10 Seconds + 0 6A: Test Left Leg Motor Drift - No Drift for 5 Seconds + 0 6B: Test Right Leg Motor Drift - No Drift for 5 Seconds + 0 7: Test Limb Ataxia (FNF/Heel-Harrison) - No Ataxia + 0 8: Test Sensation - Normal; No sensory loss + 0 9: Test Language/Aphasia - Normal; No aphasia + 0 10: Test Dysarthria - Normal + 0 11: Test Extinction/Inattention - No abnormality + 0 NIHSS Score: 0 NIHSS Free Text : pupil: R > L by 1mm This consult was conducted in real time using interactive audio and video technology. Patient was informed of the technology being used for this visit and agreed to proceed. Patient located in hospital and provider located at home/office setting. Telehealth Neurology consultation was provided. I spent 35 minutes providing telehealth care. This includes time spent for face to face visit via telemedicine, review of medical records, imaging studies and discussion of findings with providers, the patient and/or family. Dr Camden Wang [facility] For Inpatient follow-up with [facility] physician please call [facility] at . As we are not an outpatient service for any post hospital discharge needs please contact the hospital for assistance. If you have any questions for the [facility] physicians or need to reconsult for clinical or diagnostic changes please contact us via [facility] at Signature : Camden Wang
[2025-06-07 09:34] LABS: Cardiac Risk Estimate 4.6 RATIO (3.7-5.6); Cholesterol 241 mg/dL (132-200); HDL Cholesterol 52 mg/dL (40-60); LDL Cholesterol,Calculated 136 mg/dL (0-130); Thyroid Stimulating Hormone 0.60 uIU/mL (0.55-4.78); Triglycerides 265 mg/dL (30-150)
[2025-06-07 09:41] LABS: Folate > 24.00 ng/mL (>5.38); Vitamin B12 160 pg/mL (211-911)
[2025-06-07] MEDS: AZITHROMYCIN INJ 500 MG in SODIUM CHLORIDE 0.9% 250 ML 250 ML 250 MG IV (11:04)
[2025-06-07] MEDS: guaiFENesin SYRUP 200 MG/10 ML UDC PO (11:04)
[2025-06-07] MEDS: LORazepam 2 MG/ML VIAL IVP (11:47)
--- NOTE | 2025-06-07 13:19 | ESPR_ITS ---
<Statement entered by Isai Cloud MD - 06/08/25 05:04> Patient was seen and examined at bedside. I agree on the assessment and plan on this note as documented by resident Rebekah Aguilar MD PGY1. 37-year-old female with past medical history as below admitted for COPD exacerbation, this morning patient continues to have cough with increased secretions, will resume on azithromycin, ordered chest PT with chest vest, will continue DuoNebs and methylprednisolone. Patient was evaluated by neurology for anisocoria which has significantly improved CT head was negative, they recommend MRI, will order the same. Patient's respiratory status has improved significantly, anticipate discharge in the next 24 hours post neurological evaluation. Case discussed with attending Dr. Binu Gonsales, DO Isai Cloud MD PGY-2 Documentation for date of: 06/07/25 Subjective Subjective Interval history: Patient seen and examined by bedside. Patient reported wheezing improving, breathing feels better, has not used NC since yesterday, sat 100% RA. Patient reported last smoke prior to admission. Seemed to develop worsening cough. Will restart azithromycin. Tele Neurology was consulted today for new finding of anisocoria, appreciate recs. Right pupil seems less dilated compared to yesterday but still less reactive compared to left pupil. MRA head/neck showed Negative for acute hemorrhage mass effect or midline shift, Scattered punctate foci increased signal in the white matter, differential would include demyelinating disease, No acute infarct. Pending MRI brain Exam Vital Signs Temp Pulse Resp BP Pulse Ox O2 Del Method O2 Flow Rate 98.0 F 96 23 H 131/91 H 96 Room Air 2 06/07/25 12:00 06/07/25 12:00 06/07/25 12:00 06/07/25 12:00 06/07/25 12:00 06/07/25 12:00 06/06/25 15:37 Narrative Exam GENERAL APPEARANCE: AOx4. NAD, activity normal for age, well developed/ well nourished, no cyanosis, pallor, or diaphoresis. HEENT: Normocephalic atraumatic, no facial trauma, neck is supple. Lids/conjunctiva normal. Mucous membranes moist, nares normal, lips/teeth normal uvula midline without oral pharyngeal erythema, exudate or swelling TMs normal bilaterally. No lymphangitis/lymphedema. Right pupil is dilated more than left pupil. CARDIAC: Regular rate and rhythm, S1+S2 heard. No murmurs, rubs, or gallops noted RESPIRATORY: Diffuse bilateral wheezes, dry cough ABDOMINAL: NBS. Soft, ND/NT. No evidence of fluid wave. No pulsatile masses on exam, rebound tenderness, Ramos sign or pain over Mcburney's point. MUSCLES/EXTREMITIES: No abnormal range of motion. RLE +1 pitting edema DERM: Warm, pink and dry. No rashes, dermatoses, petechiae or lesions. NEUROLOGICAL: Speech is clear and appropriate. Normal level of consciousness. Gait and coordination are normal. 5/5 strength in all extremities. PSYCH: Normal mood and affect. Judgement/competence is appropriate Objective Labs 06/07/25 05:00 06/07/25 05:00 Labs: Laboratory Results - last 24 hr 06/07/25 05:00 WBC 12.8 H RBC 4.14 Hgb 13.6 Hct 40.1 MCV 97 MCH 32.9 MCHC 33.9 RDW Std Deviation 42.9 Plt Count 268 Neut % (Auto) 72 Lymph % (Auto) 20 Terry % (Auto) 7 Eos % (Auto) 0 Baso % (Auto) 0 Neut # (Auto) 9.1 H Lymph # (Auto) 2.5 Terry # (Auto) 0.9 H Eos # (Auto) 0.1 Baso # (Auto) 0.0 Immature Gran # (Auto) 0.07 H Absolute Nucleated RBC 0.00 Immature Gran % 1 H Nucleated RBC % 0 Sodium 143 Potassium 3.9 Chloride 109 H Carbon Dioxide 26.3 Anion Gap 8 BUN 12 Creatinine 0.7 Estim Creat Clear Calc 84.9 eGFR > 60 BUN/Creatinine Ratio [address] Glu mg/dL 160 H Hemoglobin A1c 7.2 H Calculated Osmolality 286 Calcium 9.0 Corrected Calcium 9.0 Phosphorus 3.1 Magnesium 1.9 Total Bilirubin 0.2 L AST 13 ALT 14 Alkaline Phosphatase 83 Total Protein 5.8 Albumin 4.0 Globulin 1.8 L Albumin/Globulin Ratio 2.2 Triglycerides 265 H Cholesterol 241 H LDL Cholesterol, Calc 136 H HDL Cholesterol 52 Cholesterol/HDL Ratio 4.6 Vitamin B12 160 L Folate > 24.00 TSH 0.60 ABG Interpretation ABG results: 06/06/25 06:18 ABG pH 7.37 ABG pCO2 46 ABG pO2 42 L* ABG HCO3 27 H ABG O2 Saturation 78 L ABG Base Excess 1 Quality Measures Quality Measures VTE prophylaxis Assessment & Plan Assessment Current Active Medications: Generic Name Dose Route Start Last Admin Trade Name Freq PRN Reason Stop Dose Admin Acetaminophen 650 mg 06/06/25 05:19 06/06/25 19:23 Acetaminophen 325 Mg Tablet PO 07/06/25 05:18 650 mg Q6H PRN Administration Fever >100.4 or pain 1-3 Hydrocodone Bitart/Acetaminophen 1 tab 06/06/25 05:19 Hydrocodone/Apap 5/325 Tablet PO 06/11/25 05:18 Q4HR PRN PAIN SCALE 4-6 (Moderate Albuterol/Ipratropium 3 ml 06/06/25 07:00 06/07/25 10:43 Albuterol/Ipratropium (Duoneb) Rt Penny 3 Ml Nebu INH 07/06/25 06:59 3 ml Q4HRRT WENDY Administration Albuterol/Ipratropium 3 ml 06/07/25 10:12 Albuterol/Ipratropium (Duoneb) Rt Penny 3 Ml Nebu INH 07/07/25 10:11 Q2HR PRN SHORTNESS OF BREATH OR WHEEZE Aspirin 81 mg 06/07/25 09:00 06/07/25 09:15 Aspirin Ec 81 Mg Tabec PO 07/07/25 08:59 81 mg QDAY WENDY Administration Atorvastatin Calcium 10 mg 06/06/25 21:00 06/06/25 20:05 Atorvastatin Calcium 10 Mg Tablet PO 07/06/25 20:59 Not Given HS WENDY Docusate Sodium 100 mg 06/06/25 09:00 06/07/25 09:10 Docusate Sod 100 Mg Capsule PO 07/06/25 08:59 100 mg QDAY WENDY Administration Protocol Famotidine 20 mg 06/07/25 21:00 Famotidine 20 Mg Tablet PO 07/07/25 20:59 Q12HR WENDY Guaifenesin 200 mg 06/07/25 10:11 06/07/25 11:04 Guaifenesin Syrup 200 Mg/10 Ml Udc PO 07/07/25 10:10 200 mg QID PRN Administration COUGH OR CONGESTION Protocol Heparin Sodium (Porcine) 5,000 unit 06/06/25 09:00 06/07/25 09:10 Heparin Sod Inj 5000 Unit/Ml Vial SC 06/20/25 08:59 5,000 unit Q12HR WENDY Administration Azithromycin 500 mg/ Sodium 250 mls @ 250 mls/hr 06/07/25 10:05 06/07/25 11:04 Chloride IV 06/09/25 10:04 250 mls/hr QDAY WENDY Administration Methylprednisolone 40 mg 06/08/25 09:00 Methylprednisolone 4 Mg Tablet PO 06/11/25 08:59 QDAY WENDY Nicotine 21 mg 06/06/25 10:45 06/07/25 09:10 Nicotine Patch 21 Mg/24 Hr Patch.Td24 TOP 07/06/25 10:44 21 mg QDAY WENDY Administration Ondansetron HCl 4 mg 06/06/25 05:19 Ondansetron Inj 2 Mg/Ml Inj 2 Ml IVP 07/06/25 05:18 Q6H PRN NAUSEA OR VOMITING Protocol Plan 59 year old female with PMHx 30 years of smoking, COPD, asthma, GERD, anxiety, kidney stones, hypercholesterolemia, and arthritis who presented to the ED following two days of progressively worsening SOB. Admitted for Acute Hypoxic Respiratory Failure most likely secondary to COPD exacerbation #AHRF / #COPD exacerbation #complicated by history of asthma #Active smoking 2 days of worsening shortness of breath resistant to her MDI and nebulizer treatment, O2 sats in the mid 80% per EMS improved with NC. ABG pO2 42 HCO3 27 O2 saturation 78 pCO2 46. History of smoking about 1 pack per week x 30 years, still smoke occasionally. Patient reported dry cough. Last exacerbation about a month ago. Patient is a mouth breather with NC to her mouth. Bilateral wheezing appreciated. 06/07: Patient reported wheezing improving, breathing feels better, has not used NC since yesterday, sat 100% RA. Patient reported last smoke prior to admission. Seemed to develop worsening cough. Cocci IgM negative Plan: -Restart azithromycin -Methylprednisone 40mg IVP QD -Duoneb 3mL INH Q4HRRT -Incentive spirometry -Chest PT -BIPAP prn -Plan for discharge and follow up for referral to bulkhead carpenter due to recurrent COPD exacerbation #Anisocoria Right pupil is more dilated compared to left side. Patient reported these are new to her. Denied blurry vision, double vision, weakness. Patient remained asymptomatic. CT head 06/06 negative. Tele Neurology, Dr. Wang, was consulted, appreciate recs: MRI brain, MRA head/neck, B12, folate, TSH, lipid, ASA 81mg MRA head/neck showed Negative for acute hemorrhage mass effect or midline shift, Scattered punctate foci increased signal in the white matter, differential would include demyelinating disease, No acute infarct. Plan: -Pending MRI brain -B12, folate, TSH unremarkable -Hypercholesterol noted -Plan for discharge and follow up with neurology outpatient if MRI negative #Diabetes Mellitus HA1c of 7.2%. Patient reported being allergic to metformin (diaphoresis, fatigue), recently gained weigh and increased appetite after son moved in. ASCVD risk 16% intermediate Plan: -Consider Rybelsus at time of discharge -Consult patient on lifestyle changes -Diet carb consistent low -Follow up with PCP outpatient for further management -Monitor #Right leg pitting edema RLE +2 pitting edema. Denied pain. Admitted to shortness of breath, likely from COPD exacerbation. DVT negative. Plan: -Consider cardiology outpatient followup #Hx of anxiety Remote history per patient #Hx of GERD -On famotidine PPx #Hx Hypercholesterolemia - Restart atorvastatin 10mg PO QD #Hx of underactive bladder Biweekly straight caths for urinary retention Plan: -No esteban at the moment but consider bladder scans or a esteban Health Maintenance: Code status: Full DVT prophylaxis: Heparin subq GI prophylaxis: famotidine Diet: Carb consistent low Esteban: None Lines: PIV Supplemental O2: None Disposition: Tele Assessment and plan discussed with my attending physician Dr. Gonsales and Dr. Cloud (PGY-2). Dr. Aguilar (PGY-1) ? vice president for instruction Attending Provider Attestation/Addendum I have discussed and was present for the essential components of the history, physical examination, diagnosis, and treatment plan with the resident. I agree with the patient's care as documented by the resident and amended herein by me. Christos Gonsales, DO. Although this document has been carefully reviewed, there may still be some phonetic and other typographical errors. These errors are purely grammatical due to imperfections in the software program and should not be construed in any way to compromise the substance of the patient's medical care during this visit. Patient seen and evaluated this AM. No acute events overnight, vital signs stable, patient afebrile, patient was however a little tachycardic this morning with a pulse of 117 and respiratory rate of 21 however was fine at time of our bedside visit. Labs largely unremarkable. Patient demonstrated more coughing today than previous day. The patient was demonstrated anisocoria yesterday with the right pupil being larger than her left pupil. The patient was completely asymptomatic and had recently followed up with an sales and service consultant and has a follow-up appointment approaching for cataracts according to her. As such, we did obtain a CT head without contrast which was negative for any acute intracranial pathology and obtained a teleneuro consult yesterday who recommended MRI brain, which was negative for any acute intracranial pathology to include stroke, it did read as scattered punctate foci KSI with increased signal in the white matter indicating possible demyelinating disease. We will have neurology review this tomorrow, it was recommended that she start on aspirin. It was also noted that her A1c is 7.2 and her cholesterol is elevated to 241 with her triglycerides being 265 and her LDL at 136. As such we will increase her atorvastatin to 40 mg nightly, she has been started on aspirin 81 mg daily per teleneurology, we will start her on azithromycin today and continue steroids. Likely DC in 1 to 2 days pending clinical improvement and specialist recommendations.
[2025-06-07 13:34] LABS: Cocci Serology, IgG Negative (Negative)
[2025-06-07 18:15] LABS: Influenza A Ag Negative; Influenza B Ag Negative
[2025-06-07] MEDS: ATORVASTATIN CALCIUM 20 MG TABLET 40 MG PO (20:21)
[2025-06-08] VITALS (10 sets, daily range): BP systolic 130–155; BP diastolic 81–92; PULSE 83–110; RESP 20–98; TEMP 36.1–36.6; O2SAT 93–100; BMI 28.3
[2025-06-08] MEDS: ACETYLCYSTEINE SOL 20% 4 ML NEBU 3 ML INH ×4 (03:31→14:19)
[2025-06-08] MEDS: ALBUTEROL/IPRATROPIUM (Duoneb) RT SOL 3 ML NEBU INH ×4 (03:31→14:19)
[2025-06-08 06:26] LABS: Basophils # (Auto) 0.1 Thou/mm3 (0.0-0.2); Basophils % (Auto) 1 % (0-2.5); Eosinophils # (Auto) 0.1 Thou/mm3 (0.0-0.5); Eosinophils % (Auto) 1 % (0-10); Hematocrit 39.5 % (36.0-46.0); Hemoglobin 13.3 g/dL (12.0-16.0); Immature Granulocytes Auto 0.09 Thou/mm3 (0.00-0.00); Lymphocytes # (Auto) 4.1 Thou/mm3 (1.0-4.8); Lymphocytes % (Auto) 37 % (10-50); Mean Corpuscular HGB Conc 33.7 g/dl (31.0-37.0); Mean Corpuscular Hemoglobin 33.1 pg (25.0-35.0); Mean Corpuscular Volume 98 fL (80-100); Monocytes # (Auto) 0.6 Thou/mm3 (0.0-0.8); Monocytes % (Auto) 5 % (0-12); Neutrophils # (Auto) 6.3 Thou/mm3 (1.8-7.7); Neutrophils % (Auto) 56 % (37-80); Nucleated Red Blood Cell # 0.00 Thou/mm3 (0.00-0.00); Nucleated Red Blood Cell % 0 /100 WBC (0); Platelet Count 264 Thou/mm3 (140-440); RDW Standard Deviation 43.4 fL (36.4-46.3); Red Blood Count 4.02 Miln/mm3 (4.00-5.20); White Blood Count 11.1 Thou/mm3 (3.6-11.0)
[2025-06-08 06:49] LABS: Alanine Aminotransferase 14 U/L (10-49); Albumin, Serum 3.9 gm/dL (3.4-4.8); Albumin/Globulin Ratio 2.2 (1.2-2.2); Alkaline Phosphatase 81 U/L (46-116); Anion Gap 7 (7-16); Aspartate Amino Transferase 13 U/L (0-34); BUN/Creatinine Ratio 19 Ratio (12-20); Bilirubin,Total 0.2 mg/dL (0.3-1.2); Blood Urea Nitrogen 13 mg/dL (9-23); Calcium 8.8 mg/dL (8.3-10.6); Calcium (Corrected) 8.9 mg/dL (8.5-10.1); Carbon Dioxide 26.8 mMol/L (20.0-31.0); Chloride 108 mMol/L (98-107); Creatinine (Component) 0.7 mg/dL (0.6-1.3); Estimated Creatinine Clearance 84.7 mL/min (>60); Globulin 1.8 gm/dL (2.3-3.5); Glucose 117 mg/dL (74-106); Magnesium 1.7 mg/dL (1.6-2.6); Osmolality,Calculated 284 (275-295); Phosphorous 2.8 mg/dL (2.4-5.1); Potassium 3.9 mMol/L (3.4-5.1); Sodium 142 mMol/L (136-145); Total Protein 5.7 gm/dL (5.7-8.2); eGFR > 60 See Note
[2025-06-08] MEDS: NICOTINE PATCH 21 MG/24 HR PATCH.TD24 TOP (09:51)
[2025-06-08] MEDS: AZITHROMYCIN INJ 500 MG in SODIUM CHLORIDE 0.9% 250 ML 250 ML 250 MG IV (09:53)
[2025-06-08] MEDS: ASPIRIN EC 81 MG TABEC PO (09:54)
--- NOTE | 2025-06-08 10:00 | PC.NURSE ---
Pt.O2 sat at rest was 97% O2 sat walking was 94-97% (exercising recovery O2 sat was 97% with exercise.
--- NOTE | 2025-06-08 10:39 | PC.CC ---
received a transfer request for GI. Started the transfer packet. Spoke to Dr. Peralta to clarify the order, he stated he entered this order by mistake. He stated he canceled the order.
--- NOTE | 2025-06-08 14:16 | ESDS_ITS ---
<Statement entered by Deion Peralta MD - 06/08/25 15:11> Patient seen and examined at bedside. I discussed and supervised with the regulatory intern physician who took care of this patient. I personally saw and examined the patient. I agree with most of the assessment and plan. Plan of care discussed with attending Dr. Andres. Deion Peralta MD PGY-2 Planned Discharge Date 06/08/25 DS: Providers Provider Date of admission: 06/06/25 05:14 Primary care physician: Physician No Primary/Family Admitting Provider: Jerome Gaffney MD Attending Provider on Admission: Binu Gonsales DO Consults: 06/06/25 15:25 Consult to Neurology / Tele-Neurology Urgent Comment: Tele specialist Consulting Provider: Daniel Paige Attending Provider on DC: Jeffery Andres MD Discharging Provider: Rebekah Aguilar MD DS: Diagnosis Problem List Completed Was Problem List Reviewed/Reconciled?: Yes Hospital Course Hospital Course Hospital course: 59-year-old female with past medical history 30 years of smoking, COPD, asthma, GERD, anxiety, kidney stones, hypercholesterolemia, arthritis presented with progressive worsening SOB x 2 days.? Admitted for acute hypoxic respiratory respiratory failure secondary to COPD exacerbation.? Last ED visit 2 months ago also for COPD exacerbation.? Use home nebulizer and inhaler at home, not on home oxygen.? In ED, CXR showed no focal consolidation or effusion.? Sat 94% on 5 L NC.? CBC WNL.? Patient was treated with albuterol, ipratropium, dexamethasone, LR. In hospital, patient was treated with DuoNeb, methylprednisolone, and azithromycin.? Patient reported persistent wheezing but shortness of breath improved, 100% O2 saturation on room air.? During this admission, also found to have diabetes HA1c 7.2, an incidental anisocoria with right pupil more dilated than left. Patient has been asymptomatic, no changes in vision. CT head negative. Consulted teleneurology. MRI brain and MRA 06/07 showed no acute hemorrhage, no acute infarct, scattered punctate foci increased signal in the white matter, differential include demyelinating disease. Patient stable and medically clear for discharge at this time.? Advised patient to follow-up outpatient with patient's neurologist, Dr. Paige, for incidental finding of anisocoria, PCP for diabetes/cholesterol management and referral to tack coverer due to recurrent COPD exacerbation. #AHRF 2/2 #COPD exacerbation #complicated by history of asthma #Active smoking #Anisocoria #Diabetes Mellitus #Right leg pitting edema #Hx of anxiety #Hx of GERD #Hx Hypercholesterolemia #Hx of underactive bladder Instruction: You have been started on the following medications: - Prednisone 40mg once daily on 06/09 and 06/10 - Mucomyst as needed, 30 ml The following changes have been made to your medication: - Atorvastatin has been increased to 40mg once daily Please continue taking all other medications as previously prescribed. Please follow up with your primary care doctor in 7-10 days. If you do not have a primary doctor, please visit the [facility]. -[address], [place] [address] Please call to make appointment with neurologist Dr. Paige Please return to ED if you develop new or worsening symptoms. Assessment and plan discussed with my attending physician Dr. Gonsales and Dr. Cloud (PGY-2). Dr. Aguilar (PGY-1) ? resident program specialist Time Spent with Patient Time attestation: Total time spent providing and/or coordinating discharge services: 35 minutes Time spent: Greater than 30 minutes Exam Vital Signs Temp Pulse Resp BP Pulse Ox O2 Del Method O2 Flow Rate 97.8 F 93 23 H 147/83 H 96 Room Air 2 06/08/25 12:00 06/08/25 12:00 06/08/25 12:00 06/08/25 12:00 06/08/25 12:00 06/08/25 12:00 06/08/25 12:00 Narrative Exam GENERAL APPEARANCE: AOx4. NAD, activity normal for age, well developed/ well nourished, no cyanosis, pallor, or diaphoresis. HEENT: Normocephalic atraumatic, no facial trauma, neck is supple. Lids/conjunctiva normal. Mucous membranes moist, nares normal, lips/teeth normal uvula midline without oral pharyngeal erythema, exudate or swelling TMs normal bilaterally. No lymphangitis/lymphedema. Right pupil is dilated more than left pupil. CARDIAC: Regular rate and rhythm, S1+S2 heard. No murmurs, rubs, or gallops noted RESPIRATORY: Diffuse bilateral wheezes, no increase work of breathing ABDOMINAL: NBS. Soft, ND/NT. No evidence of fluid wave. No pulsatile masses on exam, rebound tenderness, Ramos sign or pain over Mcburney's point. MUSCLES/EXTREMITIES: No abnormal range of motion. No swelling DERM: Warm, pink and dry. No rashes, dermatoses, petechiae or lesions. NEUROLOGICAL: Speech is clear and appropriate. Normal level of consciousness. Gait and coordination are normal. 5/5 strength in all extremities. PSYCH: Normal mood and affect. Judgement/competence is appropriate Discharge Plan Plan Patient Disposition: HOME (Self Care) Patient condition on transfer: Stable Care Plan Goals: You have been started on the following medications: - Prednisone 40mg once daily on 06/09 and 06/10 - Mucomyst as needed, 30 ml The following changes have been made to your medication: - Atorvastatin has been increased to 40mg once daily Please continue taking all other medications as previously prescribed. Please follow up with your primary care doctor in 7-10 days. If you do not have a primary doctor, please visit the [facility]. -[address], [place] [address] Please call to make appointment with neurologist Dr. Paige Please return to ED if you develop new or worsening symptoms. Prescriptions/Referrals Prescriptions/Med Rec: New prednisone 20 mg tablet 40 mg PO QDAY 2 Days Qty: 4 0RF atorvastatin [Lipitor] 40 mg tablet 40 mg PO QDAY 30 Days Qty: 30 2RF acetylcysteine 100 mg/mL (10 %) solution 2 ml inhalation Q4H Qty: 30 0RF fluticasone propion-salmeterol [Advair Diskus] 250-50 mcg/dose blister with device 1 inh inhalation BID 30 Days Qty: 60 0RF Continued montelukast [Singulair] 10 MG tablet 10 mg PO HS Qty: 0 fluticasone propionate 50 mcg/actuation spray,suspension 1 spray INTRANASAL DAILY Patient Comments: SHAKE LQ AND U 1 SPR IEN BID Rx Instructions: 1 spray each nose albuterol sulfate 90 mcg/actuation HFA aerosol inhaler 2 inh INHALATION [id number] PRN (Reason: Shortness Of Breath Or Wheezing) Patient Comments: INHALE 2 PUFFS BY MOUTH EVERY 6 HOURS NEEDED estradiol 1 mg tablet 2 mg PO DAILY oxycodone-acetaminophen 5-325 mg tablet 1 tab PO Q6H PRN (Reason: Pain) Rx Instructions: Hx right total knee replacement on 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/21 ipratropium-albuterol 0.5 mg-3 mg(2.5 mg base)/3 mL solution for nebulization 3 ml inhalation QID PRN (Reason: shortness of breath) Qty: 180 0RF cyclobenzaprine 10 mg tablet 10 mg PO BID Patient Comments: TAKE 1 TABLET BY MOUTH AT BEDTIME lidocaine 5 % adhesive patch,medicated 1 patch TOPICAL Q24H loratadine 10 mg tablet 10 mg PO DAILY Patient Comments: TAKE 1 TABLET BY MOUTH DAILY Discontinued albuterol sulfate 0.63 mg/3 mL Solution For Nebulization 0.63 mg INHALATION BID PRN (Reason: Shortness Of Breath) atorvastatin 10 mg tablet 10 mg PO DAILY Patient Comments: TAKE ONE TABLET BY MOUTH EVERY DAY FOR CHOLESTEROL Referrals: No Primary/Family,Physician [Primary Care Provider] Patient/Caregiver Discharge Instructions Discharge Activity: activity as tolerated Education Materials: COPD: Chronic Coughing, COPD: Wheezing and Chest Tightness, Asthma and COPD, COPD: Using Inhalers, COPD Meds Print Language: Luxembourgish Stand Alone Forms: Negin Award Info., Patient Portal Info Letter Discharge Order Discharge Orders: Discharge (Routine); Ordered 06/08/25 Ordered By: Deion Peralta Quality Discharge Quality Measures VTE prophylaxis Attestestation Attestation I have seen and examined the patient. I was physically present for the ruff portions of the services provided including history, physical exam, diagnosis, treatment plans and orders. I agree with assessment and plan of care as documented by residents. Even though this this note was carefully revised there may still be minor errors in chemical etching processor due to voice recognition software. Jeffery Andres MD
--- NOTE | 2025-06-08 15:59 | PC.NURSE ---
Pt. Discharged in stable condition with all personal belongings, DC instructions, RX to Pharmacy, IV and Telemetry DC'd Prior. To private car, via ambulation, accompanied by CAGE MANAGER.
== END 2025-06-08 15:08 | disposition home or self-care (01) | DRG 190 ==
LOC: SERX 04:41 → SERHOLD 06:27 → S2NX 07:52
PROVIDERS: Psychiatry & Neurology Neurology; Admitting Provider Student in an Organized Health Care Education/Training Program; Emergency Provider Emergency Medicine; Visit Provider Student in an Organized Health Care Education/Training Program
DX: J44.1 Chronic obstructive pulmonary disease with (acute) exacerbation (principal); J96.01 Acute respiratory failure with hypoxia; E78.00 Pure hypercholesterolemia, unspecified; F41.9 Anxiety disorder, unspecified; K21.9 Gastro-esophageal reflux disease without esophagitis; R33.9 Retention of urine, unspecified; H57.02 Anisocoria; F17.200 Nicotine dependence, unspecified, uncomplicated; Z87.442 Personal history of urinary calculi; E11.65 Type 2 diabetes mellitus with hyperglycemia; Z79.82 Long term (current) use of aspirin; Z79.890 Hormone replacement therapy; Z88.8 Allergy status to other drugs, medicaments and biological substances; Z90.710 Acquired absence of both cervix and uterus; Z71.6 Tobacco abuse counseling; Z79.1 Long term (current) use of non-steroidal anti-inflammatories (NSAID)
CPT/HCPCS: 36415; 36600; 70450; 70544; 71045; 80053; 80061; 82607; 82746; 82803; 83036; 83735; 83880; 84100; 84443; 84484; 85025; 85379; 86331; 86635; 87077; 87186; 87205; 87502; 87635; 93005; 93971; 94640; 94644; 94664; 94667; 96361; 96365; 96375; 99284; A9270; J0456; J0696; J1100; J1644; J2060; J2919; J7050; J7120; J7509

== ENCOUNTER → 2025-07-21 | Outpatient (CLI) | payer BC, SELFPAY ==
[2025-07-21 13:31] LABS: Collection Type, Urine Clean Catch
[2025-07-21 13:46] LABS: Basophils # (Auto) 0.1 Thou/mm3 (0.0-0.2); Basophils % (Auto) 1 % (0-2.5); Eosinophils # (Auto) 0.2 Thou/mm3 (0.0-0.5); Eosinophils % (Auto) 2 % (0-10); Hematocrit 45.1 % (36.0-46.0); Hemoglobin 15.3 g/dL (12.0-16.0); Immature Granulocytes Auto 0.05 Thou/mm3 (0.00-0.00); Lymphocytes # (Auto) 3.4 Thou/mm3 (1.0-4.8); Lymphocytes % (Auto) 33 % (10-50); Mean Corpuscular HGB Conc 33.9 g/dl (31.0-37.0); Mean Corpuscular Hemoglobin 32.6 pg (25.0-35.0); Mean Corpuscular Volume 96 fL (80-100); Monocytes # (Auto) 0.6 Thou/mm3 (0.0-0.8); Monocytes % (Auto) 6 % (0-12); Neutrophils # (Auto) 5.9 Thou/mm3 (1.8-7.7); Neutrophils % (Auto) 58 % (37-80); Nucleated Red Blood Cell # 0.00 Thou/mm3 (0.00-0.00); Nucleated Red Blood Cell % 0 /100 WBC (0); Platelet Count 285 Thou/mm3 (140-440); RDW Standard Deviation 41.7 fL (36.4-46.3); Red Blood Count 4.69 Miln/mm3 (4.00-5.20); White Blood Count 10.2 Thou/mm3 (3.6-11.0)
[2025-07-21 13:52] LABS: Bacteria,Urine Rare; Bilirubin,Urine Negative (Negative); Blood,Urine Trace (Negative); Clarity,Urine Clear (Clear/Hazy); Color,Urine Yellow (Lt Yel-Yel); Culture Indicated,Urine Not Indicated; Glucose, Urine Negative (Negative); Ketones,Urine Negative (Negative); Leukocyte Esterase,Urine Negative (Negative); Nitrite,Urine Negative (Negative); PH,Urine 6.0 (5.0-7.0); Protein,Urine Trace (Neg - Trace); RBC,Urine 18 /hpf (0-3); Specific Gravity,Urine 1.027 (1.001-1.035); Squamous Epithelial Cell,Urine 2 /hpf (0-5); Urobilinogen,Urine 2.0 mg/dL (0.0-1.0); WBC,Urine 2 /hpf (0-5)
[2025-07-21 13:59] LABS: Glucose Estimated Average 160 mg/dL (80-131); Hemoglobin A1C 7.2 % Hgb (4.8-6.0)
[2025-07-21 14:21] LABS: Vitamin D 25 Hydroxy Total 28.2 ng/mL (7.3-40.2)
[2025-07-21 14:22] LABS: Alanine Aminotransferase 28 U/L (10-49); Albumin, Serum 4.4 gm/dL (3.4-4.8); Albumin/Globulin Ratio 1.8 (1.2-2.2); Alkaline Phosphatase 92 U/L (46-116); Anion Gap 9 (7-16); Aspartate Amino Transferase 26 U/L (0-34); BUN/Creatinine Ratio 17 Ratio (12-20); Bilirubin,Total 0.6 mg/dL (0.3-1.2); Blood Urea Nitrogen 15 mg/dL (9-23); Calcium 9.2 mg/dL (8.3-10.6); Calcium (Corrected) 9.2 mg/dL (8.5-10.1); Carbon Dioxide 28.0 mMol/L (20.0-31.0); Cardiac Risk Estimate 3.5 RATIO (3.7-5.6); Chloride 106 mMol/L (98-107); Cholesterol 170 mg/dL (132-200); Creatinine (Component) 0.9 mg/dL (0.6-1.3); Globulin 2.4 gm/dL (2.3-3.5); Glucose 121 mg/dL (74-106); HDL Cholesterol 49 mg/dL (40-60); LDL Cholesterol,Calculated 65 mg/dL (0-130); Osmolality,Calculated 286 (275-295); Potassium 4.6 mMol/L (3.4-5.1); Sodium 143 mMol/L (136-145); Thyroid Stimulating Hormone 1.17 uIU/mL (0.55-4.78); Total Protein 6.8 gm/dL (5.7-8.2); Triglycerides 281 mg/dL (30-150); eGFR > 60 See Note
== END | disposition home or self-care (01) ==
LOC: COPL 13:11
PROVIDERS: PCP Family Medicine; Referring Provider Family Medicine; Visit Provider Family Medicine
DX: Z00.00 Encounter for general adult medical examination without abnormal findings (principal); E11.9 Type 2 diabetes mellitus without complications; Z13.0 Encounter for screening for diseases of the blood and blood-forming organs and certain disorders involving the immune mechanism; Z13.29 Encounter for screening for other suspected endocrine disorder; Z13.21 Encounter for screening for nutritional disorder; Z13.220 Encounter for screening for lipoid disorders; Z13.1 Encounter for screening for diabetes mellitus; Z83.3 Family history of diabetes mellitus
CPT/HCPCS: 36415; 80053; 80061; 81001; 82306; 83036; 84443; 85025